=== PATIENT | female | born 1975 | race Caucasian/White ===

== ENCOUNTER → 2016-11-03 | Outpatient (CLI) | payer BC ==
[~2016-11-03] MED LIST: IBUP600T OR; METHYLERGONOVINE PO
--- NOTE | 2016-11-08 21:16 | HOLTMON ---
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 Sinus rhythm with normal AV conduction and normal intraventricular conduction was the baseline mechanism. Minimum HR was 55 bpm, average HR 85 bpm and maximum HR 135 bpm. There were 2 PVC's and 4 PAC's. No pauses. No reported symptoms. Normal Holter monitor. Electronically Signed On 11-08-2016 21:16:38 EST by Reuben Josue
== END ==
LOC: M EKG 15:05
PROVIDERS: ATTEND Family Medicine
DX: R00.2 Palpitations (principal)

== ENCOUNTER → 2016-11-17 | Outpatient (REF) | payer BC ==
[2016-11-17 13:00] LABS: FREE T4 1.01 NG/DL (0.76-1.46)
== END ==
LOC: M LABNEURO 12:17
PROVIDERS: ATTEND Family Medicine
DX: R73.01 Impaired fasting glucose (principal); L65.8 Other specified nonscarring hair loss

== ENCOUNTER 2016-12-11 13:20 | Emergency (ER) | payer OTHER, BC ==
--- NOTE | 2016-12-11 14:17 | EDDOCDS ---
Nurse's Notes [facility] Name: Shakira Tay Age: 41 yrs Sex: Female : 1975 Arrival Date: 12/11/2016 Time: 13:20 Bed I10 / 23 Private MD: Franny Sepulveda Diagnosis: Contact with and (suspected) exposure to other hazardous, chiefly nonmedicinal, chemicals-IN RIGHT EYE, NO SYMPTOMS Presentation: 12/11 13:35 Presenting complaint: Patient states: cavicide cleaners in right eye. pt reports she dsf flushed her eye out. Letty wanted pt to be seen here. Adult Sepsis Screening: The patient does not have new or worsening altered mentation. Patient's respiratory rate is less than 22. Systolic blood pressure is greater than 100. Patient has a qSOFA score of 0- Negative Sepsis Screen. Suicide/Homicide risk assessment- the patient denies having any suicidal and/or homicidal ideations and does not present with any other emotional, behavioral or mental health complaints. Status: Patient is not a social human services assistants or dependent. Transition of care: patient was not received from another setting of care. 13:35 Acuity: GIANNI Level 4 dsf 13:35 Method Of Arrival: Walkin/Carried/Asstd dsf Triage Assessment: 13:37 General: Appears in no apparent distress, Behavior is appropriate for age, cooperative. dsf Pain: Denies pain. HIV screening NA for this visit Offered previously. EENT: Eyes redness noted around eye. pt denies pain or burning or blurry vision . 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 Claritin 10 mg Oral tab 1 tab once daily 2. gabapentin 300 mg Oral cap 1 cap 3 times per day 3. omeprazole 40 mg Oral cpDR once daily - PMHx: GERD; Migraine Headaches; Trigeminal Neuralgia; - PSHx: D & C; gastric sleeve; - Social history: Smoking status: Patient states was never smoker of tobacco. No barriers to communication noted, The patient speaks fluent Frisian, Speaks appropriately for age. - Family history: Not pertinent. - : The pt / caregiver states he / she is not on anticoagulants. Home medication list is obtained from the patient. - Exposure Risk Screening:: None identified. Screenin:01 Screening information is obtained from the patient. Fall risk: No risks identified. kr3 Assistance ADL's: requires no assistance with activities of daily living. Abuse/DV Screen: The patient / caregiver reports he/she is: not in a situation that causes fear, pain or injury. Nutritional screening: No deficits noted. Advance Directives: Currently, there is no health care proxy. home support is adequate. Assessment: 14:01 Reassessment: Patient appears in no apparent distress at this time. Patient denies pain kr3 at this time. EENT: Denies blurred vision. Vital Signs: 13:22 BP 135 / 85; Pulse 88; Resp 18; Temp 97.7(O); Pulse Ox 99% on R/A; Weight 88 kg (R); elp Height 5 ft. 1 in. (154.94 cm) (R); 13:22 Body Mass Index 36.66 (88.00 kg, 154.94 cm) elp Vitals: 13:22 Log In Time: December 11, 2016 at 13:22. elp Visual Acuity: 14:01 Left Eye Visual acuity 20/25, ; Right Eye Visual acuity 20/50, ; With Lenses; kr3 ED Course: 13:21 Patient visited by Merlyn Page PCA. elp 13:21 Patient moved to Waiting elp 13:22 Franny Sepulveda MD is Private Physician. elp 13:23 Patient visited by Merlyn Page PCA. elp 13:23 Patient moved to Pre RCE elp 13:36 Triage Initiated dsf 13:38 Patient moved to I10 / 23 dsf 13:42 Poison Control notified at 13:42 recommendations reviewed with Debbie ALEJO . dsf 13:48 [facility] dt4 13:48 Malini Clifton MD is Attending Physician. dt4 13:49 Patient visited by Debbie Allen PA-C. dt4 14:02 The patient / caregiver is instructed regarding the plan of care and ED course. kr3 Accompanied by Friend, Patient has correct armband on for positive identification. Call light in reach. 14:02 No IV's were initiated during this patient's visit. No procedures done that require kr3 assistance. Order Results: There are currently no results for this order. Outcome: 14:02 No special radiology studies were completed. kr3 14:08 Discharge ordered by Provider. dt4 14:16 Discharge Assessment: patient administered narcotics - no. The following High Risk rs3 Discharge criteria are identified: None. Discharged to home with friend. Condition: stable. Discharge instructions given to friend. Property :Personal belongings accompany Pt. 14:17 Patient left the ED. rs3 Signatures: Kandis JjRN RN kr3 Floridalma SmartRN RN rs3 Samira CrossRN RN dsf Merlyn Page, JOSH GRAB SETTER elp Debbie Allen, KERLINE CHURCHILL dt4 MTDD
--- NOTE | 2016-12-11 14:17 | EDDOCDS ---
Physician Documentation [facility] Name: Shakira Tay Age: 41 yrs Sex: Female : 1975 Arrival Date: 12/11/2016 Time: 13:20 Bed I10 / 23 Private MD: Franny Sepulveda Disposition: 12/11/16 14:08 Discharged to Home/Self Care. Impression: Contact with and (suspected) exposure to other hazardous, chiefly nonmedicinal, chemicals - IN RIGHT EYE, NO SYMPTOMS. - Condition is Stable. - Discharge Instructions: Conjunctivitis, Chemical. - Medication Reconciliation, Local Pharmacy Hours form. - Follow up: Emergency Department; When: As needed; Reason: Worsening of conditions. Follow up: Private Physician; When: 4 - 5 days; Reason: Wound/Symptom Recheck, Recheck today's complaints, Continuance of care. - Problem is new. - Symptoms are unchanged. - Notes: PLEASE CALL YOUR EYE DOCTOR TODAY OR TOMORROW TO FOLLOW UP NEXT WEEK. ANY WORSENING SYMPTOMS, PLEASE RETURN TO THE ER. Historical: - Allergies: Imitrex (heavy arms and chest, pressure in the eyes); Topamax (cant think straight); - Home Meds: 1. Claritin 10 mg Oral tab 1 tab once daily 2. gabapentin 300 mg Oral cap 1 cap 3 times per day 3. omeprazole 40 mg Oral cpDR once daily - PMHx: GERD; Migraine Headaches; Trigeminal Neuralgia; - PSHx: D & C; gastric sleeve; - Social history: Smoking status: Patient states was never smoker of tobacco. No barriers to communication noted, The patient speaks fluent Swedish, Speaks appropriately for age. - Family history: Not pertinent. - : The pt / caregiver states he / she is not on anticoagulants. Home medication list is obtained from the patient. - Exposure Risk Screening:: None identified. 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 1 in. (154.94 cm) (R); 13:22 Body Mass Index 36.66 (88.00 kg, 154.94 cm) elp Visual Acuity: 14:01 Left Eye Visual acuity 20/25, ; Right Eye Visual acuity 20/50, ; With Lenses; kr3 Signatures: Kandis Jj,RN RN kr3 Floridalma Smart,RN RN rs3 Samira Cross,JOYCELYN RN lisaf Debbie Allen, KRYSTLEC PAYokastaC dt4 MTDD
--- NOTE | 2016-12-13 15:18 | EDDOCDS ---
Nurse's Notes [facility] Name: Shakira Tay Age: 41 yrs Sex: Female : 1975 Arrival Date: 12/11/2016 Time: 13:20 Bed I10 / 23 Private MD: Franny Sepulveda Diagnosis: Contact with and (suspected) exposure to other hazardous, chiefly nonmedicinal, chemicals-IN RIGHT EYE, NO SYMPTOMS Presentation: 12/11 13:35 Presenting complaint: Patient states: cavicide rack cleaner in right eye. pt reports she dsf flushed her eye out. Letty wanted pt to be seen here. Adult Sepsis Screening: The patient does not have new or worsening altered mentation. Patient's respiratory rate is less than 22. Systolic blood pressure is greater than 100. Patient has a qSOFA score of 0- Negative Sepsis Screen. Suicide/Homicide risk assessment- the patient denies having any suicidal and/or homicidal ideations and does not present with any other emotional, behavioral or mental health complaints. Status: Patient is not a business services manager or dependent. Transition of care: patient was not received from another setting of care. 13:35 Acuity: GIANNI Level 4 dsf 13:35 Method Of Arrival: Walkin/Carried/Asstd dsf Triage Assessment: 13:37 General: Appears in no apparent distress, Behavior is appropriate for age, cooperative. dsf Pain: Denies pain. HIV screening NA for this visit Offered previously. EENT: Eyes redness noted around eye. pt denies pain or burning or blurry vision . 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 Claritin 10 mg Oral tab 1 tab once daily 2. gabapentin 300 mg Oral cap 1 cap 3 times per day 3. omeprazole 40 mg Oral cpDR once daily - PMHx: GERD; Migraine Headaches; Trigeminal Neuralgia; - PSHx: D & C; gastric sleeve; - Social history: Smoking status: Patient states was never smoker of tobacco. No barriers to communication noted, The patient speaks fluent Persian, Speaks appropriately for age. - Family history: Not pertinent. - : The pt / caregiver states he / she is not on anticoagulants. Home medication list is obtained from the patient. - Exposure Risk Screening:: None identified. Screenin:01 Screening information is obtained from the patient. Fall risk: No risks identified. kr3 Assistance ADL's: requires no assistance with activities of daily living. Abuse/DV Screen: The patient / caregiver reports he/she is: not in a situation that causes fear, pain or injury. Nutritional screening: No deficits noted. Advance Directives: Currently, there is no health care proxy. home support is adequate. Assessment: 14:01 Reassessment: Patient appears in no apparent distress at this time. Patient denies pain kr3 at this time. EENT: Denies blurred vision. Vital Signs: 13:22 BP 135 / 85; Pulse 88; Resp 18; Temp 97.7(O); Pulse Ox 99% on R/A; Weight 88 kg (R); elp Height 5 ft. 1 in. (154.94 cm) (R); 13:22 Body Mass Index 36.66 (88.00 kg, 154.94 cm) elp Vitals: 13:22 Log In Time: December 11, 2016 at 13:22. elp Visual Acuity: 14:01 Left Eye Visual acuity 20/25, ; Right Eye Visual acuity 20/50, ; With Lenses; kr3 ED Course: 13:21 Patient visited by Merlyn Page PCA. elp 13:21 Patient moved to Waiting elp 13:22 Franny Sepulveda MD is Private Physician. elp 13:23 Patient visited by Merlyn Page PCA. elp 13:23 Patient moved to Pre RCE elp 13:36 Triage Initiated dsf 13:38 Patient moved to I10 / 23 dsf 13:42 Poison Control notified at 13:42 recommendations reviewed with Debbie ALEJO . dsf 13:48 [facility] dt4 13:48 Malini Clifton MD is Attending Physician. dt4 13:49 Patient visited by Debbie Allen PA-C. dt4 14:02 The patient / caregiver is instructed regarding the plan of care and ED course. kr3 Accompanied by Friend, Patient has correct armband on for positive identification. Call light in reach. 14:02 No IV's were initiated during this patient's visit. No procedures done that require kr3 assistance. 14:35 [facility] Payment Agreement was scanned into [employer] and attached to record. lg 12/12 10:48 T-Sheet-- Draft Copy was scanned into [employer] and attached to record. gb Order Results: There are currently no results for this order. Outcome: 12/11 14:02 No special radiology studies were completed. kr3 14:08 Discharge ordered by Provider. dt4 14:16 Discharge Assessment: patient administered narcotics - no. The following High Risk rs3 Discharge criteria are identified: None. Discharged to home with friend. Condition: stable. Discharge instructions given to friend. Property :Personal belongings accompany Pt. 14:17 Patient left the ED. rs3 Signatures: Bonita Shah, Reg Reg gb Kulwant Johnson, Reg Reg lg Kandis Jj,RN RN kr3 Floridalma Smart RN RN rs3 Samira Cross RN RN Merlyn Smith, Debbie Bartlett, SAPNA-Ludmila PA-Ludmila dt4 Chart Complete MTDD
--- NOTE | 2016-12-13 15:18 | EDDOCDS ---
Physician Documentation [facility] Name: Shakira Tay Age: 41 yrs Sex: Female : 1975 Arrival Date: 12/11/2016 Time: 13:20 Bed I10 / 23 Private MD: Franny Sepulveda Disposition: 12/11/16 14:08 Discharged to Home/Self Care. Impression: Contact with and (suspected) exposure to other hazardous, chiefly nonmedicinal, chemicals - IN RIGHT EYE, NO SYMPTOMS. - Condition is Stable. - Discharge Instructions: Conjunctivitis, Chemical. - Medication Reconciliation, Local Pharmacy Hours form. - Follow up: Emergency Department; When: As needed; Reason: Worsening of conditions. Follow up: Private Physician; When: 4 - 5 days; Reason: Wound/Symptom Recheck, Recheck today's complaints, Continuance of care. - Problem is new. - Symptoms are unchanged. - Notes: PLEASE CALL YOUR EYE DOCTOR TODAY OR TOMORROW TO FOLLOW UP NEXT WEEK. ANY WORSENING SYMPTOMS, PLEASE RETURN TO THE ER. Historical: - Allergies: Imitrex (heavy arms and chest, pressure in the eyes); Topamax (cant think straight); - Home Meds: 1. Claritin 10 mg Oral tab 1 tab once daily 2. gabapentin 300 mg Oral cap 1 cap 3 times per day 3. omeprazole 40 mg Oral cpDR once daily - PMHx: GERD; Migraine Headaches; Trigeminal Neuralgia; - PSHx: D & C; gastric sleeve; - Social history: Smoking status: Patient states was never smoker of tobacco. No barriers to communication noted, The patient speaks fluent Cymraes, Speaks appropriately for age. - Family history: Not pertinent. - : The pt / caregiver states he / she is not on anticoagulants. Home medication list is obtained from the patient. - Exposure Risk Screening:: None identified. 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 1 in. (154.94 cm) (R); 13:22 Body Mass Index 36.66 (88.00 kg, 154.94 cm) elp Visual Acuity: 14:01 Left Eye Visual acuity 20/25, ; Right Eye Visual acuity 20/50, ; With Lenses; kr3 MDM: 14:35 [facility] Payment Agreement was scanned into [employer] and attached to record. lg 12/12 10:48 T-Sheet-- Draft Copy was scanned into [employer] and attached to record. gb Signatures: Bonita Shah, Reg Reg gb Kulwant Johnson, Reg Reg lg Kandis Jj RN RN kr3 Floridalma Smart RN RN rs3 Samira CrossRN RN lisaf Debbie Allen, KERLINE PAOliver dt4 The chart was reviewed and I authenticate all verbal orders and agree with the evaluation and treatment provided.Attachments: 12/11 14:35 [facility] Payment Agreement 12/12 10:48 T-Sheet-- Draft Copy gb Chart Complete MTDD
--- NOTE | 2016-12-13 15:18 | EDDOCDS ---
Physician Documentation [facility] Name: Shakira Tay Age: 41 yrs Sex: Female : 1975 Arrival Date: 12/11/2016 Time: 13:20 Bed I10 / 23 Private MD: Franny Sepulveda Disposition: 12/11/16 14:08 Discharged to Home/Self Care. Impression: Contact with and (suspected) exposure to other hazardous, chiefly nonmedicinal, chemicals - IN RIGHT EYE, NO SYMPTOMS. - Condition is Stable. - Discharge Instructions: Conjunctivitis, Chemical. - Medication Reconciliation, Local Pharmacy Hours form. - Follow up: Emergency Department; When: As needed; Reason: Worsening of conditions. Follow up: Private Physician; When: 4 - 5 days; Reason: Wound/Symptom Recheck, Recheck today's complaints, Continuance of care. - Problem is new. - Symptoms are unchanged. - Notes: PLEASE CALL YOUR EYE DOCTOR TODAY OR TOMORROW TO FOLLOW UP NEXT WEEK. ANY WORSENING SYMPTOMS, PLEASE RETURN TO THE ER. Historical: - Allergies: Imitrex (heavy arms and chest, pressure in the eyes); Topamax (cant think straight); - Home Meds: 1. Claritin 10 mg Oral tab 1 tab once daily 2. gabapentin 300 mg Oral cap 1 cap 3 times per day 3. omeprazole 40 mg Oral cpDR once daily - PMHx: GERD; Migraine Headaches; Trigeminal Neuralgia; - PSHx: D & C; gastric sleeve; - Social history: Smoking status: Patient states was never smoker of tobacco. No barriers to communication noted, The patient speaks fluent St Helenian, Speaks appropriately for age. - Family history: Not pertinent. - : The pt / caregiver states he / she is not on anticoagulants. Home medication list is obtained from the patient. - Exposure Risk Screening:: None identified. 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 1 in. (154.94 cm) (R); 13:22 Body Mass Index 36.66 (88.00 kg, 154.94 cm) elp Visual Acuity: 14:01 Left Eye Visual acuity 20/25, ; Right Eye Visual acuity 20/50, ; With Lenses; kr3 MDM: 14:35 [facility] Payment Agreement was scanned into [employer] and attached to record. lg 12/12 10:48 T-Sheet-- Draft Copy was scanned into [employer] and attached to record. gb Signatures: Bonita Shah, Reg Reg gb Kulwant Johnson, Reg Reg lg Kandis Jj RN RN kr3 Floridalma Smart RN RN rs3 Samira CrossRN RN lisaf Debbie Allen, KERLINE PAOliver dt4 The chart was reviewed and I authenticate all verbal orders and agree with the evaluation and treatment provided.Attachments: 12/11 14:35 [facility] Payment Agreement 12/12 10:48 T-Sheet-- Draft Copy gb Chart Complete MTDD
== END 2016-12-11 14:17 | disposition home or self-care (01) ==
LOC: M ED 13:20
DX: Z77.098 Contact with and (suspected) exposure to other hazardous, chiefly nonmedicinal, chemicals (principal); K21.9 Gastro-esophageal reflux disease without esophagitis; G43.909 Migraine, unspecified, not intractable, without status migrainosus; G50.0 Trigeminal neuralgia; Z79.899 Other long term (current) drug therapy; Z88.8 Allergy status to other drugs, medicaments and biological substances

== ENCOUNTER → 2017-09-18 | Outpatient (CLI) | payer BC ==
[2017-09-18 18:04] LABS: BASO % 0.8 % (0.0-1.0); EOS # 0.1 10^3/uL (0.0-0.50); EOS % 2.6 % (0.0-3.0); LYMPH # 1.6 10^3/uL (1.5-4.5); MEAN CORPUSCULAR HEMOGLOBIN 28.7 pg (27.0-33.0); MEAN CORPUSCULAR HGB CONC 33.5 g/dl (32.0-36.5); MEAN CORPUSCULAR VOLUME 85.8 fl (80.0-96.0); MONO # 0.3 10^3/uL (0.0-0.8); MONO % 7.5 % (0.0-5.0); NEUTROPHILS # 1.9 10^3/uL (1.8-7.7); NEUTROPHILS % 48.1 % (36.0-66.0); PLATELET COUNT, AUTOMATED 234 10^3/uL (150-450); WHITE BLOOD COUNT 3.9 10^3/uL (4.0-10.0)
[2017-09-18 18:38] LABS: ALBUMIN 3.5 GM/DL (3.2-5.2); ALBUMIN/GLOBULIN RATIO 1.13 (1.00-1.93); ALKALINE PHOSPHATASE 102 U/L (45-117); ALT/SGPT 21 U/L (12-78); ANION GAP 8 MEQ/L (8-16); AST/SGOT 16 U/L (7-37); BILIRUBIN,TOTAL 0.4 MG/DL (0.2-1.0); BLOOD UREA NITROGEN 8 MG/DL (7-18); CALCIUM LEVEL 8.7 MG/DL (8.5-10.1); CARBON DIOXIDE LEVEL 28 MEQ/L (21-32); CHLORIDE LEVEL 103 MEQ/L (98-107); CREATININE FOR GFR 0.64 MG/DL (0.55-1.02); GLOMERULAR FILTRATION RATE > 60.0 (>58); GLUCOSE, FASTING 71 MG/DL (70-105); POTASSIUM SERUM 4.5 MEQ/L (3.5-5.1); SODIUM LEVEL 139 MEQ/L (136-145); TOTAL PROTEIN 6.6 GM/DL (6.4-8.2)
== END ==
LOC: M LABNEURO 08:34
PROVIDERS: ATTEND Family Medicine
DX: R73.01 Impaired fasting glucose (principal); K21.9 Gastro-esophageal reflux disease without esophagitis; L65.9 Nonscarring hair loss, unspecified

== ENCOUNTER → 2017-10-27 | Outpatient (REF) | payer BC ==
[2017-10-27 18:37] LABS: PROGESTERONE 0.2 NG/ML
[2017-10-27 18:38] LABS: ESTRADIOL 149.2 PG/ML; FOLLICLE STIMULATING HORMONE 7.3 mIU/mL; LUTEINIZING HORMONE 4.4 mIU/mL
== END ==
LOC: M LAB REF 16:58
PROVIDERS: ATTEND Obstetrics & Gynecology
DX: R68.82 Decreased libido (principal)

== ENCOUNTER → 2018-08-20 | Outpatient (CLI) | payer BC | LOC: M PAIN 09:30 | DX: M79.18 Myalgia, other site (principal); M43.02 Spondylolysis, cervical region; M50.10 Cervical disc disorder with radiculopathy, unspecified cervical region; G43.909 Migraine, unspecified, not intractable, without status migrainosus; Z79.899 Other long term (current) drug therapy; Z88.8 Allergy status to other drugs, medicaments and biological substances | CPT/HCPCS: G0463 ==

== ENCOUNTER → 2018-09-14 | Outpatient (CLI) | payer BC | LOC: M PAIN 15:45 | DX: M54.2 Cervicalgia (principal); M79.18 Myalgia, other site; G43.709 Chronic migraine without aura, not intractable, without status migrainosus; G50.0 Trigeminal neuralgia; M54.81 Occipital neuralgia; Z79.899 Other long term (current) drug therapy; Z88.8 Allergy status to other drugs, medicaments and biological substances; Z98.84 Bariatric surgery status | CPT/HCPCS: G0463 ==

== ENCOUNTER → 2018-11-19 | Outpatient (CLI) | payer BC ==
[~2018-11-19] MED LIST changes: +BUPIVACAINE HCL 0.25% 10 ML VIAL As Ordered ONE; +BUPIVACAINE HCL 0.25% 30 ML VIAL As Ordered ONE; +TRIAMCINOLONE ACETONIDE SUSP 40 MG/ML VIAL (J3301) As Ordered ONE; +diazePAM 5 MG TAB As Ordered ONE; +oxyCODONE 5MG TAB As Ordered ONE
--- NOTE | 2018-12-06 00:51 | ECWPNPC ---
PATIENT NAME: JOSE F MENDEZ : 1975 GENDER: FEMALE VISIT DATE: 11/19/2018 DISCHARGE DATE: 11/19/18 1036 VISIT LOCKED DATE TIME: PHYSICIAN: GALILEO TEMPLETON MD RESOURCE: GALILEO TEMPLETON MD REASON FOR APPOINTMENT 1. TPI HISTORY OF PRESENT ILLNESS HISTORY OF PRESENT ILLNESS: PAIN THE PATIENT DESCRIBES THE PAIN... FALL RISK SCREENING: SCREENING :NO FALLS IN THE PAST YEAR CURRENT MEDICATIONS TAKING GABAPENTIN 400 MG CAPSULE 1 CAPSULE ORALLY TWICE A DAY, NOTES: 11-19-18699 TAKING SPIRONOLACTONE 25 MG TABLET 1 TABLET ORALLY , NOTES: 11-19-18699 TAKING TIZANIDINE HCL 4 MG TABLET 1 TABLET NEEDED ORALLY THREE TIMES A DAY, NOTES: [id number] TAKING LORAZEPAM 0.5 MG TABLET 1 TABLET NEEDED ORALLY ONCE A DAY, NOTES: NONE RECENT TAKING LORATADINE 10 MG TABLET 1 TABLET ORALLY ONCE A DAY, NOTES: 11-19-18699 TAKING TRETINOIN 0.025 % CREAM 1 APPLICATION TO AFFECTED AREA IN THE EVENING TO FACE EXTERNALLY ONCE A DAY, NOTES: [id number] TAKING RIZATRIPTAN BENZOATE 5 MG TABLET 1 TABLET NEEDED ONE TIME ORALLY ONCE A DAY, NOTES: NOT LATELY TAKING BIOTIN MAXIMUM STRENGTH 5000 MCG CAPSULE 1 CAPSULE ORALLY ONCE A DAY, NOTES: 11-18-18699 UNKNOWN CYMBALTA 30 MG CAPSULE DELAYED RELEASE PARTICLES 1 CAPSULE ORALLY BID MEDICATION LIST REVIEWED AND RECONCILED WITH THE PATIENT PAST MEDICAL HISTORY CHRONIC MIGRANES CHRONIC NECK PAIN TRIGEMINAL NEURALGIA OCCIPITAL NEURALGIA ALLERGIES TOPAMAX: NAUSEA: SIDE EFFECTS IMITREX: NAUSEA: SIDE EFFECTS SURGICAL HISTORY D&C 2005 D&C 2010 D&C 2012 D&C 2013 GASTRIC SLEEVE 2014 FAMILY HISTORY FATHER: , DIAGNOSED WITH HYPERTENSION MOTHER: 74 YRS, DIAGNOSED WITH HYPERTENSION SOCIAL HISTORY GENERAL: TOBACCO USE ARE YOU A:NONSMOKER ALCOHOL SCREENING DID YOU HAVE A DRINK CONTAINING ALCOHOL IN THE PAST YEAR?YES HOW OFTEN DID YOU HAVE A DRINK CONTAINING ALCOHOL IN THE PAST YEAR?MONTHLY OR LESS (1 POINT) HOW MANY DRINKS DID YOU HAVE ON A TYPICAL DAY WHEN YOU WERE DRINKING IN THE PAST YEAR?1 OR 2 (0 POINTS) HOW OFTEN DID YOU HAVE SIX OR MORE DRINKS ON ONE OCCASION IN THE PAST YEAR?NEVER (0 POINTS) POINTS1 INTERPRETATIONNEGATIVE RECREATIONAL DRUG USE DRUG USE?NO LANGUAGE LANGUAGES SPOKEN:[place] LEARNING BARRIERS / SPECIAL NEEDS BARRIERS TO LEARNING?NO HEARING IMPAIRED?NO VISION IMPAIRED?YES :CORRECTIVE LENSES COGNITIVELY IMPAIRED?NO READINESS TO LEARN?YES DOMESTIC VIOLENCE DO YOU FEEL SAFE IN YOUR ENVIRONMENT?YES PAIN CLINIC PFS, CLERGY, PUBLIC HEALTH REFERRALS HAS THE PATIENT BEEN EDUCATED REGARDING HIS/HER PLAN OF CARE?YES HAS THE PATIENT BEEN EDUCATED REGARDING PAIN, THE RISK FOR PAIN, THE IMPORTANCE OF EFFECTIVE PAIN MANAGEMENT, AND THE PAIN ASSESSMENT PROCESS?YES ADVANCE DIRECTIVE ADVANCE DIRECTIVE DISCUSSED WITH PATIENT:YES PT DOES NOT WANT INFO AT THIS TIME 09/14/18 REVIEWED WITH PT 08/20/18 1799 BVREVIEWED WITH PT 09/14/18 1601 BV. HOSPITALIZATION/MAJOR DIAGNOSTIC PROCEDURE NONE OTHER THAN SURGERIES REVIEW OF SYSTEMS REVIEWED BY: PROVIDER: . CONSTITUTIONAL: ANY CHANGE IN YOUR MEDICAL CONDITION? NO . CHILLS NO . FEVER NO . INFECTION: DO YOU HAVE NEW INFECTIONS? YES HAD A SORE THROAT RESOLVED SINCE 11-08-18 . DO YOU HAVE HISTORY OF MRSA? NO . MUSCULOSKELETAL: ANY NEW PATTERNS OF PAIN OR NUMBNESS? NO . GASTROENTEROLOGY: ANY NEW CHANGE IN BOWEL CONTROL? NO . GENITOURINARY: ANY NEW CHANGE IN BLADDER CONTROL? NO . IS THERE A CHANCE YOU COULD BE ? NO . HEMATOLOGY/LYMPH: DO YOU TAKE ANY BLOOD THINNERS? (FOR EXAMPLE- COUMADIN, PLAVIX, AGGRENOX, PLATEL, PRADAXA, OR XARELTO) NO . WHEN WAS YOUR LAST DOSE? DATE: TIME: . NEUROLOGY: HAVE YOU FALLEN IN THE PAST 12 MONTHS? NO . ANY NEW EXTREMITY NUMBNESS OR WEAKNESS? NO . CARDIOLOGY: DO YOU HAVE A PACEMAKER OR DEFIBRILLATOR? NO . RESPIRATORY: HAVE YOU BEEN SICK IN THE PAST WEEK? NO . FEVER NO . FLU LIKE SYMPTOMS? NO . COUGH NO . INTEGUMENTARY: DO YOU HAVE ANY RASHES OR OPEN SORES? NO . ALLERGIC/IMMUNO: ARE YOU ALLERGIC TO IV DYE? NO . ANY NEW ALLERGIES? NO . PSYCHIATRIC: DO YOU HAVE THOUGHTS OF HURTING YOURSELF OR SOMEONE ELSE? NO . ARE YOU ABUSED, NEGLECTED, OR IN AN UNSAFE ENVIRONMENT? NO . ENDOCRINOLOGY: ARE YOU DIABETIC? NO . OTHER: DO YOU NEED ANY PRESCRIPTIONS? NO . IF YES, PLEASE LIST: ____ . ANY NEW PROBLEMS WITH YOUR MEDICATIONS? NO . WHEN DID YOU LAST EAT? ____-17-19 8 PM . WHEN DID YOU LAST DRINK? ____THIS MORNING 0730 . WHAT DID YOU LAST DRINK? ____WATER . NAME OF PERSON DRIVING YOU HOME? ____JAMES . DO YOU HAVE ANY OTHER QUESTIONS OR CONCERNS NO . VITAL SIGNS WT 215.2 LBS, HT 61 IN, BMI 40.66 INDEX, BP 143/99 MM HG, HR 82 /MIN, RR 16 /MIN, TEMP 97.4 F, OXYGEN SAT % 100%, NA INITIALS SC 09:09. ASSESSMENTS MYALGIA, OTHER SITE - M79.18 (PRIMARY) PROCEDURES PN TRIGGER POINT INJECTION WITH STEROIDS PRE PROCEDURE DIAGNOSIS 1. MYALGIA 2. PAIN AT BILATERAL NECK AREA, BILATERAL SHOULDER AREA, AND BILATERAL THORACIC AREA POST PROCEDURE DIAGNOSIS 1. MYALGIA 2. PAIN AT BILATERAL NECK AREA, BILATERAL SHOULDER AREA, AND BILATERAL THORACIC AREA PROCEDURE TRIGGER POINT INJECTION AT BILATERAL NECK AREA, BILATERAL SHOULDER AREA, AND BILATERAL THORACIC AREA SURGEON DR. GALILEO TEMPLETON RADAR TESTER NONE ANESTHESIA LOCAL PRE PROCEDURE NOTE THE PATIENT HAS A HISTORY OF CHRONIC PAIN AT THE RIGHT AND LEFT NECK AREA, RIGHT AND LEFT SHOULDER AREA, AND RIGHT AND LEFT THORACIC AREA. I EVALUATE THE PATIENT AND REVIEWED THE CHART. THERE IS EVIDENCE OF BANDS OF TISSUE WITH RESTRICTION OF MOVEMENT AND PRESENCE OF TRIGGER POINT AT THE AFFECTED AREA. I WENT OVER THE RISKS, ALTERNATIVES, AND BENEFITS ASSOCIATED WITH THIS PROCEDURE. THE PATIENT WOULD LIKE TO PROCEED AND GIVE CONSENT TO PERFORMED THE PROCEDURE. THE PATIENT DENIES UNEXPLAINABLE WEIGHT LOSS, FEVER, CHILLS, OR NEW CHANGES IN URINARY OR BOWEL CONTROL DESCRIPTION OF PROCEDURE THE PATIENT WAS BROUGHT TO THE PROCEDURE ROOM AND PLACED IN THE SITTING POSITION. THE AREA WAS CLEANED WITH ALCOHOL. THE PROCEDURE WAS DONE USING ASEPTIC STERILE TECHNIQUE. I CHECKED LATERALITY AND THE LEVEL WHERE THE PROCEDURE WAS GOING TO BE PERFORMED WITH THE PATIENT AND THE SUPPORTING STAFF AT THE MOMENT OF THE TIME OUT IN THE PROCEDURE ROOM. USING A 25-GAUGE NEEDLE, TRIGGER POINTS WERE INJECTED AT THE RIGHT AND LEFT NECK AREA, RIGHT AND LEFT SHOULDER AREA, AND RIGHT AND LEFT THORACIC AREA WITH A TOTAL OF 40 ML OF BUPIVACAINE 0.25% AND KENALOG 40 MG. THERE WAS NO EVIDENCE OF BLOOD, PARESTHESIA OR CEREBROSPINAL FLUID DURING THE PROCEDURE. THE PATIENT WAS SENT TO THE RECOVERY ROOM. THE PATIENT WAS MOVING THE EXTREMITIES AND DOING WELL. THERE WAS NO COMPLICATION DURING THE PROCEDURE POST PROCEDURE NOTE THE PATIENT WILL BE SEEN IN A FOLLOW UP IN THE NEXT FEW WEEKS. INSTRUCTIONS WERE GIVEN, QUESTIONS WERE ANSWERED, AND THE PATIENT EXPRESSED UNDERSTANDING AND AGREES WITH THE PLAN. I, GERMAN KEBEDE, DOCUMENTED THE ABOVE INFORMATION ACTING A SCRIBE FOR DR. TEMPLETON. I HAVE REVIEWED THE ABOVE DOCUMENT, WRITTEN BY GERMAN EARL AND I VERIFY THAT IT IS ACCURATE. PROCEDURE CODES 92808 INJECT TRIGGER POINTS 3/> DISPOSITION & COMMUNICATION FOLLOW UP 3 WEEKS ELECTRONICALLY SIGNED BY GALILEO TEMPLETON MD, MD ON 12/05/2018 AT 05:52 PM EST DISCLAIMER : THIS IS A VISIT SUMMARY EXTRACTED FROM THE [employer] CHART. IT IS NOT A COPY OF THE [employer] PROGRESS NOTE. KASSI
== END ==
LOC: M PAIN 08:30
PROVIDERS: ATTEND Anesthesiology
DX: M79.18 Myalgia, other site (principal); M54.2 Cervicalgia; M25.511 Pain in right shoulder; M25.512 Pain in left shoulder; M54.6 Pain in thoracic spine; G43.909 Migraine, unspecified, not intractable, without status migrainosus; E66.01 Morbid (severe) obesity due to excess calories; Z68.41 Body mass index [BMI] 40.0-44.9, adult; Z79.899 Other long term (current) drug therapy; Z88.8 Allergy status to other drugs, medicaments and biological substances; Z98.84 Bariatric surgery status
CPT/HCPCS: 20553; J3301

== ENCOUNTER → 2018-12-02 | Outpatient (CLI) | payer BC ==
[~2018-12-02] MED LIST changes: -BUPIVACAINE HCL 0.25% 10 ML VIAL As Ordered ONE; -BUPIVACAINE HCL 0.25% 30 ML VIAL As Ordered ONE; -TRIAMCINOLONE ACETONIDE SUSP 40 MG/ML VIAL (J3301) As Ordered ONE; -diazePAM 5 MG TAB As Ordered ONE; -oxyCODONE 5MG TAB As Ordered ONE
[2018-12-02 11:28] LABS: BASO % 0.7 % (0.0-1.0); EOS # 0.1 10^3/uL (0.0-0.50); EOS % 1.3 % (0.0-3.0); HEMATOCRIT 46.8 % (36.0-47.0); HEMOGLOBIN 15.8 g/dl (12.0-15.5); LYMPH # 1.9 10^3/uL (1.5-4.5); LYMPH % 31.6 % (24.0-44.0); MEAN CORPUSCULAR HEMOGLOBIN 29.3 pg (27.0-33.0); MEAN CORPUSCULAR HGB CONC 33.8 g/dl (32.0-36.5); MEAN CORPUSCULAR VOLUME 86.8 fl (80.0-96.0); MONO # 0.4 10^3/uL (0.0-0.8); MONO % 5.8 % (0.0-5.0); NEUTROPHILS # 3.6 10^3/uL (1.8-7.7); NEUTROPHILS % 60.4 % (36.0-66.0); PLATELET COUNT, AUTOMATED 253 10^3/uL (150-450); RED BLOOD COUNT 5.39 10^6/uL (4.00-5.40)
[2018-12-02 11:42] LABS: ALBUMIN 3.5 GM/DL (3.2-5.2); ALT/SGPT 17 U/L (12-78); BILIRUBIN,TOTAL 0.6 MG/DL (0.2-1.0); BLOOD UREA NITROGEN 10 MG/DL (7-18); CALCIUM LEVEL 8.7 MG/DL (8.5-10.1); CARBON DIOXIDE LEVEL 29 MEQ/L (21-32); CHLORIDE LEVEL 101 MEQ/L (98-107); CHOLESTEROL LEVEL 279 MG/DL (<200); CHOLESTEROL RISK RATIO 5.365 (<5); CREATININE FOR GFR 0.72 MG/DL (0.55-1.30); FREE T4 1.06 NG/DL (0.76-1.46); GLOMERULAR FILTRATION RATE > 60.0 (>58); GLUCOSE, FASTING 92 MG/DL (70-100); HDL CHOLESTEROL 52 MG/DL (>40); LDL CHOLESTEROL 200 MG/DL (<100); NON-HDL-C 227 MG/DL; POTASSIUM SERUM 4.4 MEQ/L (3.5-5.1); SODIUM LEVEL 136 MEQ/L (136-145); THYROID STIMULATING HORMONE 0.843 uIU/ML (0.358-3.740); TOTAL PROTEIN 6.8 GM/DL (6.4-8.2); TRIGLYCERIDES LEVEL 134 MG/DL (<150)
[2018-12-02 11:44] LABS: TOTAL 25(OH) VITAMIN D 19.7 NG/ML (30.0-100.0)
== END ==
LOC: M WUC 08:49
PROVIDERS: ATTEND Family Medicine
DX: Z13.29 Encounter for screening for other suspected endocrine disorder (principal); F32.1 Major depressive disorder, single episode, moderate; Z13.0 Encounter for screening for diseases of the blood and blood-forming organs and certain disorders involving the immune mechanism

== ENCOUNTER → 2018-12-10 | Outpatient (CLI) | payer BC ==
--- NOTE | 2018-12-18 23:57 | ECWPNPC ---
PATIENT NAME: JOSE F MENDEZ : 1975 GENDER: FEMALE VISIT DATE: 12/10/2018 DISCHARGE DATE: 12/10/18 1555 VISIT LOCKED DATE TIME: PHYSICIAN: GALILEO TEMPLETON MD RESOURCE: GALILEO TEMPLETON MD REASON FOR APPOINTMENT 1. POST TPI HISTORY OF PRESENT ILLNESS HISTORY OF PRESENT ILLNESS: PAIN THE PATIENT DESCRIBES THE PAIN... 43 YEAR OLD FEMALE PATIENT WITH A HISTORY OF CHRONIC NECK PAIN. THE PATIENT DESCRIBES THE PAIN ACHING, TENDER, AND CONTINUOUS WITH A PAIN SCORE OF 5-7/10 DEPENDING ON PHYSICAL ACTIVITY. THE PATIENT SAYS THAT THE PAIN STARTS IN HER NECK AREA AND RADIATES UP CAUSING HEADACHES WELL DOWN INTO HER SHOULDERS. THE PATIENT WAS HERE FOR A TRIGGER POINT INJECTION ON 11/19/2018 AND REPORTS NOT HAVING VERY MUCH RELIEF AFTER THE INJECTION. THE PATIENT IS CURRENTLY USING GABAPENTIN AND TIZANIDINE TO AID IN PAIN RELIEF. PATIENT DENIES UNEXPLAINABLE WEIGHT LOSS, FEVER, CHILLS, NEW CHANGES ON HER URINARY OR BOWEL CONTROL. FALL RISK SCREENING: SCREENING :NO FALLS IN THE PAST YEAR CURRENT MEDICATIONS TAKING GABAPENTIN 400 MG CAPSULE 1 CAPSULE ORALLY TWICE A DAY TAKING SPIRONOLACTONE 25 MG TABLET 1 TABLET ORALLY TAKING TIZANIDINE HCL 4 MG TABLET 1 TABLET NEEDED ORALLY THREE TIMES A DAY TAKING LORAZEPAM 0.5 MG TABLET 1 TABLET NEEDED ORALLY ONCE A DAY TAKING LORATADINE 10 MG TABLET 1 TABLET ORALLY ONCE A DAY TAKING TRETINOIN 0.025 % CREAM 1 APPLICATION TO AFFECTED AREA IN THE EVENING TO FACE EXTERNALLY ONCE A DAY TAKING RIZATRIPTAN BENZOATE 5 MG TABLET 1 TABLET NEEDED ONE TIME ORALLY ONCE A DAY TAKING BIOTIN MAXIMUM STRENGTH 5000 MCG CAPSULE 1 CAPSULE ORALLY ONCE A DAY TAKING EFFEXOR 75MG ORALLY DAILY NOT-TAKING CYMBALTA 30 MG CAPSULE DELAYED RELEASE PARTICLES 1 CAPSULE ORALLY BID MEDICATION LIST REVIEWED AND RECONCILED WITH THE PATIENT PAST MEDICAL HISTORY CHRONIC MIGRANES CHRONIC NECK PAIN TRIGEMINAL NEURALGIA OCCIPITAL NEURALGIA ALLERGIES TOPAMAX: NAUSEA: SIDE EFFECTS IMITREX: NAUSEA: SIDE EFFECTS SURGICAL HISTORY D&C 2005 D&C 2010 D&C 2012 D&C 2013 GASTRIC SLEEVE 2014 FAMILY HISTORY FATHER: , DIAGNOSED WITH HYPERTENSION MOTHER: 74 YRS, DIAGNOSED WITH HYPERTENSION SOCIAL HISTORY GENERAL: TOBACCO USE ARE YOU A:NONSMOKER ALCOHOL SCREENING DID YOU HAVE A DRINK CONTAINING ALCOHOL IN THE PAST YEAR?YES HOW OFTEN DID YOU HAVE A DRINK CONTAINING ALCOHOL IN THE PAST YEAR?MONTHLY OR LESS (1 POINT) HOW MANY DRINKS DID YOU HAVE ON A TYPICAL DAY WHEN YOU WERE DRINKING IN THE PAST YEAR?1 OR 2 (0 POINTS) HOW OFTEN DID YOU HAVE SIX OR MORE DRINKS ON ONE OCCASION IN THE PAST YEAR?NEVER (0 POINTS) POINTS1 INTERPRETATIONNEGATIVE RECREATIONAL DRUG USE DRUG USE?NO LANGUAGE LANGUAGES SPOKEN:[place] LEARNING BARRIERS / SPECIAL NEEDS BARRIERS TO LEARNING?NO HEARING IMPAIRED?NO VISION IMPAIRED?YES :CORRECTIVE LENSES COGNITIVELY IMPAIRED?NO READINESS TO LEARN?YES DOMESTIC VIOLENCE DO YOU FEEL SAFE IN YOUR ENVIRONMENT?YES PAIN CLINIC PFS, CLERGY, PUBLIC HEALTH REFERRALS HAS THE PATIENT BEEN EDUCATED REGARDING HIS/HER PLAN OF CARE?YES HAS THE PATIENT BEEN EDUCATED REGARDING PAIN, THE RISK FOR PAIN, THE IMPORTANCE OF EFFECTIVE PAIN MANAGEMENT, AND THE PAIN ASSESSMENT PROCESS?YES ADVANCE DIRECTIVE ADVANCE DIRECTIVE DISCUSSED WITH PATIENT:YES PT DOES NOT WANT INFO AT THIS TIME REVIEWED WITH PT 08/20/18 1803 BVREVIEWED WITH PT 09/14/18 0741 BV. HOSPITALIZATION/MAJOR DIAGNOSTIC PROCEDURE NONE OTHER THAN SURGERIES REVIEW OF SYSTEMS REVIEWED BY: PROVIDER: GALILEO TEMPLETON MD . CONSTITUTIONAL: ANY CHANGE IN YOUR MEDICAL CONDITION? NO . CHILLS NO . FEVER NO . INFECTION: DO YOU HAVE NEW INFECTIONS? NO . DO YOU HAVE HISTORY OF MRSA? NO . MUSCULOSKELETAL: ANY NEW PATTERNS OF PAIN OR NUMBNESS? NO . GASTROENTEROLOGY: ANY NEW CHANGE IN BOWEL CONTROL? NO . GENITOURINARY: ANY NEW CHANGE IN BLADDER CONTROL? NO . IS THERE A CHANCE YOU COULD BE ? NO . HEMATOLOGY/LYMPH: DO YOU TAKE ANY BLOOD THINNERS? (FOR EXAMPLE- COUMADIN, PLAVIX, AGGRENOX, PLATEL, PRADAXA, OR XARELTO) NO . WHEN WAS YOUR LAST DOSE? DATE: TIME: . NEUROLOGY: HAVE YOU FALLEN IN THE PAST 12 MONTHS? NO . ANY NEW EXTREMITY NUMBNESS OR WEAKNESS? NO . CARDIOLOGY: DO YOU HAVE A PACEMAKER OR DEFIBRILLATOR? NO . RESPIRATORY: HAVE YOU BEEN SICK IN THE PAST WEEK? NO . FEVER NO . FLU LIKE SYMPTOMS? NO . COUGH NO . INTEGUMENTARY: DO YOU HAVE ANY RASHES OR OPEN SORES? NO . ALLERGIC/IMMUNO: ARE YOU ALLERGIC TO IV DYE? NO . ANY NEW ALLERGIES? NO . PSYCHIATRIC: DO YOU HAVE THOUGHTS OF HURTING YOURSELF OR SOMEONE ELSE? NO . ARE YOU ABUSED, NEGLECTED, OR IN AN UNSAFE ENVIRONMENT? NO . ENDOCRINOLOGY: ARE YOU DIABETIC? NO . OTHER: DO YOU NEED ANY PRESCRIPTIONS? NO . IF YES, PLEASE LIST: ____ . ANY NEW PROBLEMS WITH YOUR MEDICATIONS? NO . WHEN DID YOU LAST EAT? ____ . WHEN DID YOU LAST DRINK? ____ . WHAT DID YOU LAST DRINK? ____ . NAME OF PERSON DRIVING YOU HOME? ____ . DO YOU HAVE ANY OTHER QUESTIONS OR CONCERNS NO . VITAL SIGNS WT 215 LBS, HT 61 IN, BMI 40.62 INDEX, BP 134/88 MM HG, HR 82 /MIN, RR 16 /MIN, TEMP 97.3 F, OXYGEN SAT % 95, REVIEWED BY: EM. EXAMINATION GENERAL EXAMINATION: PATIENT IS ALERT O X 3 AND COOPERATIVE. PAIN INCREASES OVER THE CERVICAL FACET JOINTS WITH EXTENSION AND LATERAL ROTATION OF THE NECK. MRI OF THE CERVICAL SPINE DONE ON 05/30/2018 SHOWS FACET ARTHROPATHY CHANGES AT MULTIPLE LEVELS AND AN OSTEOPHYTE AT C5-C6. ASSESSMENTS SPONDYLOSIS OF CERVICAL REGION WITHOUT MYELOPATHY OR RADICULOPATHY - M47.812 (PRIMARY) TREATMENT SPONDYLOSIS OF CERVICAL REGION WITHOUT MYELOPATHY OR RADICULOPATHY CLINICAL NOTES: WE DISCUSSED SEVERAL ISSUES WITH MRS. MENDEZ'S PAIN MANAGEMENT CASE. DUE TO THE CERVICAL SPONDYLOSIS, I WOULD LIKE TO MOVE FORWARD WITH A BILATERAL C3-C4, C5-C6 THERAPEUTIC CERVICAL FACET BLOCK. WE DISCUSSED THE BENEFITS, RISKS, AND ALTERNATIVES OF THE INJECTION AND THE PATIENT WOULD LIKE TO PROCEED. THE PATIENT WOULD LIKE TO PROCEED WITH IV SEDATION DUE TO PAIN AND ANXIETY ASSOCIATED WITH THE PROCEDURE. THE PATIENT WILL COME IN FOR A PRE SEDATION FOLLOW UP. INSTRUCTIONS WERE GIVEN, QUESTIONS WERE ANSWERED, PATIENT REPORTS UNDERSTANDING AND AGREES WITH THE PLAN. I, GERMAN KEBEDE, DOCUMENTED THE ABOVE INFORMATION ACTING A SCRIBE FOR DR. TEMPLETON. I HAVE REVIEWED THE ABOVE DOCUMENT, WRITTEN BY GERMAN EARL AND I VERIFY THAT IT IS ACCURATE. OTHERS NOTES: FACET JOINT INJECTION MATERIAL WAS PRINTED, REVIEWED AND GIVEN TO PT. EM. PROCEDURE CODES FA211 ESTABILISHED PATIENT [facility] FACILITY CHARGE G8427 CURRENT MEDS W/DOSAGES DOCUMENTED G8730 PAIN ASSESS POS TOOL F/U PLAN DOC DISPOSITION & COMMUNICATION FOLLOW UP 3 WEEKS ELECTRONICALLY SIGNED BY GALILEO TEMPLETON MD, MD ON 12/18/2018 AT 08:55 PM EST DISCLAIMER : THIS IS A VISIT SUMMARY EXTRACTED FROM THE [employer] CHART. IT IS NOT A COPY OF THE [employer] PROGRESS NOTE. KASSI
== END ==
LOC: M PAIN 14:45
PROVIDERS: ATTEND Anesthesiology
DX: M47.812 Spondylosis without myelopathy or radiculopathy, cervical region (principal); G43.709 Chronic migraine without aura, not intractable, without status migrainosus; M54.2 Cervicalgia; G50.0 Trigeminal neuralgia; M54.81 Occipital neuralgia; Z79.899 Other long term (current) drug therapy; Z88.8 Allergy status to other drugs, medicaments and biological substances

== ENCOUNTER → 2019-01-14 | Outpatient (CLI) | payer BC ==
[2019-01-14 13:41] LABS: ALBUMIN 3.7 GM/DL (3.2-5.2); ALT/SGPT 29 U/L (12-78); AMYLASE 50 U/L (25-115); BILIRUBIN,TOTAL 0.4 MG/DL (0.2-1.0); BLOOD UREA NITROGEN 7 MG/DL (7-18); CALCIUM LEVEL 8.8 MG/DL (8.5-10.1); CARBON DIOXIDE LEVEL 31 MEQ/L (21-32); CHLORIDE LEVEL 102 MEQ/L (98-107); CREATININE FOR GFR 0.79 MG/DL (0.55-1.30); GLOMERULAR FILTRATION RATE > 60.0 (>58); GLUCOSE, FASTING 78 MG/DL (70-100); LIPASE 130 U/L (73-393); POTASSIUM SERUM 4.1 MEQ/L (3.5-5.1); SODIUM LEVEL 139 MEQ/L (136-145); TOTAL PROTEIN 6.9 GM/DL (6.4-8.2)
--- NOTE | 2019-01-14 17:51 | REP ---
ABDOMEN, FLAT UPRIGHT PA CHEST, FOUR VIEWS: HISTORY: Pain. Air is present in the small and large intestine. There are no dilated loops of intestine. Several air fluid levels are present. There is no pneumoperitoneum. The lungs are clear. Surgical clips are present in the right upper quadrant. IMPRESSION:Nonspecific bowel gas pattern. Electronically Signed by Demar Schmitt MD 01/14/2019 05:57 P
== END ==
LOC: M WUC 10:07
PROVIDERS: ATTEND Family Medicine
DX: R10.13 Epigastric pain (principal)

== ENCOUNTER → 2019-04-25 | Outpatient (CLI) | payer BC ==
--- NOTE | 2019-05-04 00:57 | ECWPNPC ---
PATIENT NAME: JOSE F MENDEZ : 1975 GENDER: FEMALE VISIT DATE: 04/25/2019 DISCHARGE DATE: 04/25/19 1558 VISIT LOCKED DATE TIME: PHYSICIAN: GALILEO TEMPLETON MD RESOURCE: GALILEO TEMPLETON MD REASON FOR APPOINTMENT 1. PRE SEDATE HISTORY OF PRESENT ILLNESS HISTORY OF PRESENT ILLNESS: PAIN THE PATIENT DESCRIBES THE PAIN... 43 YEAR OLD FEMALE PATIENT WITH A HISTORY OF CHRONIC NECK PAIN. THE PATIENT DESCRIBES THE PAIN ACHING, TENDER SHARP, AND INTERMITTENT WITH A PAIN SCORE OF 1-7/10 DEPENDING ON PHYSICAL ACTIVITY. THE PATIENT SAYS HER PAIN STARTS IN HER NECK AREA AND RADIATES UP INTO HER HEAD. THE PATIENT SAYS THAT SHE HAS HAD THIS PAIN FOR MANY YEARS. PATIENT DENIES UNEXPLAINABLE WEIGHT LOSS, FEVER, CHILLS, NEW CHANGES ON HER URINARY OR BOWEL CONTROL. FALL RISK SCREENING: SCREENING :NO FALLS REPORTED IN THE LAST YEAR CURRENT MEDICATIONS TAKING GABAPENTIN 400 MG CAPSULE 1 CAPSULE ORALLY TWICE A DAY TAKING SPIRONOLACTONE 50 MG TABLET 1 TABLET ORALLY DAILY TAKING LORATADINE 10 MG TABLET 1 TABLET ORALLY ONCE A DAY TAKING RIZATRIPTAN BENZOATE 5 MG TABLET 1 TABLET NEEDED ONE TIME ORALLY ONCE A DAY TAKING BIOTIN MAXIMUM STRENGTH 5000 MCG CAPSULE 1 CAPSULE ORALLY ONCE A DAY TAKING EFFEXOR 150 MGS ORALLY DAILY TAKING VITAMIN D-3 5000 UNIT TABLET 1 TAB ORALLY DAILY NOT-TAKING TIZANIDINE HCL 4 MG TABLET 1 TABLET NEEDED ORALLY THREE TIMES A DAY NOT-TAKING LORAZEPAM 0.5 MG TABLET 1 TABLET NEEDED ORALLY ONCE A DAY NOT-TAKING TRETINOIN 0.025 % CREAM 1 APPLICATION TO AFFECTED AREA IN THE EVENING TO FACE EXTERNALLY ONCE A DAY NOT-TAKING CYMBALTA 30 MG CAPSULE DELAYED RELEASE PARTICLES 1 CAPSULE ORALLY BID MEDICATION LIST REVIEWED AND RECONCILED WITH THE PATIENT PAST MEDICAL HISTORY CHRONIC MIGRANES CHRONIC NECK PAIN 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 SOCIAL HISTORY GENERAL: TOBACCO USE ARE YOU A:FORMER SMOKER HOW LONG HAS IT BEEN SINCE YOU LAST SMOKED?> 10 YEARS PAIN CLINIC PFS, CLERGY, PUBLIC HEALTH REFERRALS HAS THE PATIENT BEEN EDUCATED REGARDING HIS/HER PLAN OF CARE?YES HAS THE PATIENT BEEN EDUCATED REGARDING PAIN, THE RISK FOR PAIN, THE IMPORTANCE OF EFFECTIVE PAIN MANAGEMENT, AND THE PAIN ASSESSMENT PROCESS?YES LATEX QUESTIONNAIRE LATEX ALLERGY : HAVE YOU EVER DEVELOPED ANY TYPE OF REACTION AFTER HANDLING LATEX PRODUCTS SUCH RUBBER GLOVES, CONDOMS, DIAPHRAGMS, BALLOONS, SOCKS, OR UNDERWEAR?NO LATEX ALLERGY : HAVE YOU EVER DEVELOPED ANY TYPE OF REACTION DURING OR AFTER DENTAL APPOINTMENT, VAGINAL/RECTAL EXAMINATION, SURGICAL PROCEDURE, OR ANY OTHER EXPOSURE?NO LATEX RISK : HAVE YOU EVER HAD ANY DIFFICULTY BREATHING OR HIVES AFTER EATING OR HANDLING ANY FRUITS, OR VEGETABLES; SUCH KIWI, BANANAS, STONE FRUITS, OR CHESTNUTSNO LATEX RISK : DO YOU HAVE A PREVIOUS PERSONAL HISTORY OF MORE THAN NINE SURGERIES, SPINA BIFIDA, OR REPEATED CATHERTIZATIONS? NO LATEX RISK : ARE YOU FREQUENTLY EXPOSED TO LATEX PRODUCTS IN YOUR OCCUPATION?NO DATE ASKED : 04/25/2019 CAFFEINE CAFFEINE USE?NO ADVANCE DIRECTIVE ADVANCE DIRECTIVE DISCUSSED WITH PATIENT:YES 04/25/19 PT DOES NOT HAVE ANY ADVANCED DIRECTIVES AND SHE DECLINES INFORMATION ON HCP AT THIS TIME. AD EDUCATION LEVEL OF EDUCATION:[id number] EVANGELICAL [employer] LANGUAGES SPOKEN:WOLOF DOMESTIC VIOLENCE DO YOU FEEL SAFE IN YOUR ENVIRONMENT?YES ALCOHOL SCREENING DID YOU HAVE A DRINK CONTAINING ALCOHOL IN THE PAST YEAR?YES HOW OFTEN DID YOU HAVE A DRINK CONTAINING ALCOHOL IN THE PAST YEAR?MONTHLY OR LESS (1 POINT) HOW MANY DRINKS DID YOU HAVE ON A TYPICAL DAY WHEN YOU WERE DRINKING IN THE PAST YEAR?1 OR 2 (0 POINTS) HOW OFTEN DID YOU HAVE SIX OR MORE DRINKS ON ONE OCCASION IN THE PAST YEAR?NEVER (0 POINTS) POINTS1 INTERPRETATIONNEGATIVE RECREATIONAL DRUG USE DRUG USE?NO LEARNING BARRIERS / SPECIAL NEEDS BARRIERS TO LEARNING?NO HEARING IMPAIRED?NO VISION IMPAIRED?YES :CORRECTIVE LENSES COGNITIVELY IMPAIRED?NO READINESS TO LEARN?YES LEARNING PREFERENCES?NO LEARNING CAPABILITIES PRESENT?YES EMOTIONAL BARRIERS?NO SPECIAL DEVICES?NO RESTAURANT LINE SERVER NEEDED?NO REVIEWED WITH PT 08/20/18 9844 BVREVIEWED WITH PT 09/14/18 4461 BV. HOSPITALIZATION/MAJOR DIAGNOSTIC PROCEDURE SURGERIES CHILD REVIEW OF SYSTEMS REVIEWED BY: PROVIDER: GALILEO TEMPLETON MD . CONSTITUTIONAL: ANY CHANGE IN YOUR MEDICAL CONDITION? NO . CHILLS NO . FEVER NO . INFECTION: DO YOU HAVE NEW INFECTIONS? NO . DO YOU HAVE HISTORY OF MRSA? NO . MUSCULOSKELETAL: ANY NEW PATTERNS OF PAIN OR NUMBNESS? NO . GASTROENTEROLOGY: ANY NEW CHANGE IN BOWEL CONTROL? NO . GENITOURINARY: ANY NEW CHANGE IN BLADDER CONTROL? NO . IS THERE A CHANCE YOU COULD BE ? NO . HEMATOLOGY/LYMPH: DO YOU TAKE ANY BLOOD THINNERS? (FOR EXAMPLE- COUMADIN, PLAVIX, AGGRENOX, PLATEL, PRADAXA, OR XARELTO) NO . WHEN WAS YOUR LAST DOSE? DATE: TIME: . NEUROLOGY: HAVE YOU FALLEN IN THE PAST 12 MONTHS? YES X 1 THOUGHT SHE WAS AT THE BOTTOM OF THE STAIRS AND SHE WASN'T-BRUISED LEFT KNEE. NOT EVALUATED AFTER . ANY NEW EXTREMITY NUMBNESS OR WEAKNESS? YES, RIGHT HAND DUE TO CARPAL TUNNEL SURGERY . CARDIOLOGY: DO YOU HAVE A PACEMAKER OR DEFIBRILLATOR? NO . RESPIRATORY: HAVE YOU BEEN SICK IN THE PAST WEEK? NO . FEVER NO . FLU LIKE SYMPTOMS? NO . COUGH NO . INTEGUMENTARY: DO YOU HAVE ANY RASHES OR OPEN SORES? NO . ALLERGIC/IMMUNO: ARE YOU ALLERGIC TO IV DYE? NO . ANY NEW ALLERGIES? NO . PSYCHIATRIC: DO YOU HAVE THOUGHTS OF HURTING YOURSELF OR SOMEONE ELSE? NO . ARE YOU ABUSED, NEGLECTED, OR IN AN UNSAFE ENVIRONMENT? NO . ENDOCRINOLOGY: ARE YOU DIABETIC? NO . OTHER: DO YOU NEED ANY PRESCRIPTIONS? NO . IF YES, PLEASE LIST: ____ . ANY NEW PROBLEMS WITH YOUR MEDICATIONS? NO . WHEN DID YOU LAST EAT? ____ . WHEN DID YOU LAST DRINK? ____ . WHAT DID YOU LAST DRINK? ____ . NAME OF PERSON DRIVING YOU HOME? ____ . DO YOU HAVE ANY OTHER QUESTIONS OR CONCERNS NO . VITAL SIGNS WT 207.8 LBS, HT 61 IN, BMI 39.26 INDEX, BP 132/92 MM HG, HR 96 /MIN, RR 16 /MIN, TEMP 97.5 F, OXYGEN SAT % 96%, SAFE IN ENV? (Y/N) Y, NA INITIALS SC 14:37, REVIEWED BY: AD. EXAMINATION GENERAL EXAMINATION: PATIENT IS ALERT O X 3 AND COOPERATIVE. LUNGS CLEAR, TO AUSCULTATION. HEART: NO MURMURS OR GALLOPS; FACIAL CRANIAL NERVES ARE GROSSLY NORMAL. GOOD SYMMETRY OF FACIAL MUSCLE MOVEMENT. NORMAL VISUAL MONSIVAIS. TENDERNESS IN THE NECK AREA. PAIN INCREASES OVER THE CERVICAL FACET JOINTS WITH EXTENSION AND LATERAL ROTATION OF THE NECK. MRI OF THE CERVICAL SPINE DONE ON 05/30/2018 SHOWS FACET ARTHROPATHY CHANGES. ASSESSMENTS SPONDYLOSIS OF CERVICAL REGION WITHOUT MYELOPATHY OR RADICULOPATHY - M47.812 (PRIMARY) TREATMENT SPONDYLOSIS OF CERVICAL REGION WITHOUT MYELOPATHY OR RADICULOPATHY CLINICAL NOTES: WE DISCUSSED SEVERAL ISSUES WITH MRS. MENDEZ'S PAIN MANAGEMENT CASE. DUE TO THE CERVICAL SPONDYLOSIS, I WOULD LIKE TO MOVE FORWARD WITH A BILATERAL C3-C4, C5-C6 THERAPEUTIC CERVICAL FACET BLOCK. WE DISCUSSED THE BENEFITS, RISKS, AND ALTERNATIVES OF THE INJECTION AND THE PATIENT WOULD LIKE TO PROCEED. THE PATIENT WOULD LIKE TO MOVE FORWARD WITH IV SEDATION DUE TO PAIN AND ANXIETY ASSOCIATED WITH THE PROCEDURE. THE PATIENT WILL FOLLOW UP A FEW WEEKS AFTER THE INJECTION. INSTRUCTIONS WERE GIVEN, QUESTIONS WERE ANSWERED, PATIENT REPORTS UNDERSTANDING AND AGREES WITH THE PLAN. I, GERMAN KEBEDE, DOCUMENTED THE ABOVE INFORMATION ACTING A SCRIBE FOR DR. TEMPLETON. I HAVE REVIEWED THE ABOVE DOCUMENT, WRITTEN BY GERMAN RIVER[place] AND I VERIFY THAT IT IS ACCURATE. . PRE[facility] MEDICINE PAIN CLINIC TEACHING: MEDICATIONS FACET BLOCK HANDOUT PRINTED REVIEWED AND GIVEN TO PT. EM. PROCEDURE CODES FA211 ESTABILISHED PATIENT [facility] CHARGE [id number] CURRENT MEDS W/DOSAGES DOCUMENTED G8730 PAIN ASSESS POS TOOL F/U PLAN DOC DISPOSITION & COMMUNICATION FOLLOW UP 3 WEEKS ELECTRONICALLY SIGNED BY GALILEO TEMPLETON MD, MD ON 05/03/2019 AT 03:45 PM EDT DISCLAIMER : THIS IS A VISIT SUMMARY EXTRACTED FROM THE [facility] CHART. IT IS NOT A COPY OF THE [facility] PROGRESS NOTE. MTDD
== END ==
LOC: M PAIN 14:30
PROVIDERS: ATTEND Anesthesiology
DX: M47.812 Spondylosis without myelopathy or radiculopathy, cervical region (principal); G43.709 Chronic migraine without aura, not intractable, without status migrainosus; G50.0 Trigeminal neuralgia; M54.81 Occipital neuralgia; M79.10 Myalgia, unspecified site; G56.01 Carpal tunnel syndrome, right upper limb; Z87.891 Personal history of nicotine dependence; Z98.84 Bariatric surgery status; Z79.899 Other long term (current) drug therapy; Z88.8 Allergy status to other drugs, medicaments and biological substances

== ENCOUNTER → 2019-04-28 | Outpatient (CLI) | payer BC ==
[~2019-04-28] MED LIST changes: +BUPIVACAINE HCL 0.25% 30 ML VIAL As Ordered ONE; +ISOVUE-M 300 61% 15ML VIAL (Q9967) As Ordered ONE; +LIDOCAINE 1% SDV INJ 30 ML VIAL As Ordered ONE; +MIDAZOLAM INJ 2 MG/2 ML VIAL (J2250) As Ordered ONE; +TRIAMCINOLONE ACETONIDE SUSP 40 MG/ML VIAL (J3301) As Ordered ONE; +fentaNYL 100 MCG/2 ML INJECTION (J3010) As Ordered ONE
--- NOTE | 2019-04-28 14:11 | REP ---
PARTIAL CERVICAL SPINE: HISTORY: Bilateral cervical facet block for pain. 7 seconds of fluoroscopy time is reported. Findings: A single last image hold fluoroscopically obtained spot radiograph of the neck documents needle position and contrast injection associated with cervical facet injection procedure. Electronically Signed by Ronn Natarajan MD 04/28/2019 02:28 P
--- NOTE | 2019-05-05 01:22 | ECWPNPC ---
PATIENT NAME: JOSE F MENDEZ : 1975 GENDER: FEMALE VISIT DATE: 04/28/2019 DISCHARGE DATE: 04/28/19 1037 VISIT LOCKED DATE TIME: PHYSICIAN: GALILEO TEMPLETON MD RESOURCE: GALILEO TEMPLETON MD REASON FOR APPOINTMENT 1. CERVICAL FACET BLOCK W/ IV SEDATION. HISTORY OF PRESENT ILLNESS HISTORY OF PRESENT ILLNESS: PAIN THE PATIENT DESCRIBES THE PAIN... FALL RISK SCREENING: SCREENING :NO FALLS REPORTED IN THE LAST YEAR CURRENT MEDICATIONS TAKING GABAPENTIN 400 MG CAPSULE 1 CAPSULE ORALLY TWICE A DAY, NOTES: 04-28-19699 TAKING SPIRONOLACTONE 50 MG TABLET 1 TABLET ORALLY DAILY, NOTES: 799 TAKING LORATADINE 10 MG TABLET 1 TABLET ORALLY ONCE A DAY, NOTES: 04-27-19699 TAKING RIZATRIPTAN BENZOATE 5 MG TABLET 1 TABLET NEEDED ONE TIME ORALLY ONCE A DAY, NOTES: LAST WEEK TAKING BIOTIN MAXIMUM STRENGTH 5000 MCG CAPSULE 1 CAPSULE ORALLY ONCE A DAY, NOTES: 04-27-19799 TAKING EFFEXOR 150 MGS ORALLY DAILY, NOTES: 04-27-19799 TAKING VITAMIN D-3 5000 UNIT TABLET 1 TAB ORALLY DAILY, NOTES: 04-27-19699 TAKING FLONASE 50 MCG/DOSE INHALER 1 SPRAY IN EACH NOSTRIL NASALLY TWICE A DAY UNKNOWN TIZANIDINE HCL 4 MG TABLET 1 TABLET NEEDED ORALLY THREE TIMES A DAY UNKNOWN LORAZEPAM 0.5 MG TABLET 1 TABLET NEEDED ORALLY ONCE A DAY UNKNOWN TRETINOIN 0.025 % CREAM 1 APPLICATION TO AFFECTED AREA IN THE EVENING TO FACE EXTERNALLY ONCE A DAY UNKNOWN CYMBALTA 30 MG CAPSULE DELAYED RELEASE PARTICLES 1 CAPSULE ORALLY BID MEDICATION LIST REVIEWED AND RECONCILED WITH THE PATIENT PAST MEDICAL HISTORY CHRONIC MIGRANES CHRONIC NECK PAIN 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 CONSTITUTIONAL: ANY CHANGE IN YOUR MEDICAL CONDITION? NO . CHILLS NO . FEVER NO . INFECTION: DO YOU HAVE NEW INFECTIONS? NO . DO YOU HAVE HISTORY OF MRSA? NO . MUSCULOSKELETAL: ANY NEW PATTERNS OF PAIN OR NUMBNESS? NO . GASTROENTEROLOGY: ANY NEW CHANGE IN BOWEL CONTROL? NO . GENITOURINARY: ANY NEW CHANGE IN BLADDER CONTROL? NO . IS THERE A CHANCE YOU COULD BE ? NO . HEMATOLOGY/LYMPH: DO YOU TAKE ANY BLOOD THINNERS? (FOR EXAMPLE- COUMADIN, PLAVIX, AGGRENOX, PLATEL, PRADAXA, OR XARELTO) NO . WHEN WAS YOUR LAST DOSE? DATE: TIME: . NEUROLOGY: HAVE YOU FALLEN IN THE PAST 12 MONTHS? YES . ANY NEW EXTREMITY NUMBNESS OR WEAKNESS? NO . CARDIOLOGY: DO YOU HAVE A PACEMAKER OR DEFIBRILLATOR? NO . RESPIRATORY: HAVE YOU BEEN SICK IN THE PAST WEEK? NO . FEVER NO . FLU LIKE SYMPTOMS? NO . COUGH NO . INTEGUMENTARY: DO YOU HAVE ANY RASHES OR OPEN SORES? NO . ALLERGIC/IMMUNO: ARE YOU ALLERGIC TO IV DYE? NO . ANY NEW ALLERGIES? NO . PSYCHIATRIC: DO YOU HAVE THOUGHTS OF HURTING YOURSELF OR SOMEONE ELSE? NO . ARE YOU ABUSED, NEGLECTED, OR IN AN UNSAFE ENVIRONMENT? NO . ENDOCRINOLOGY: ARE YOU DIABETIC? NO . OTHER: DO YOU NEED ANY PRESCRIPTIONS? NO . IF YES, PLEASE LIST: ____ . ANY NEW PROBLEMS WITH YOUR MEDICATIONS? NO . WHEN DID YOU LAST EAT? ____04-27-191999 . WHEN DID YOU LAST DRINK? ____04-28-1930 . WHAT DID YOU LAST DRINK? ____WATER . NAME OF PERSON DRIVING YOU HOME? ____FOREIGN NOGUERA . DO YOU HAVE ANY OTHER QUESTIONS OR CONCERNS NO . VITAL SIGNS WT 207.8 LBS, HT 61 IN, BMI 39.26 INDEX, BP 130/83 MM HG, HR 91 /MIN, RR 16 /MIN, TEMP 97.2 F, OXYGEN SAT % 98%, SAFE IN ENV? (Y/N) YES, NA INITIALS ND 08:44, REVIEWED BY: KG. ASSESSMENTS SPONDYLOSIS OF CERVICAL REGION WITHOUT MYELOPATHY OR RADICULOPATHY - M47.812 (PRIMARY) TREATMENT SPONDYLOSIS OF CERVICAL REGION WITHOUT MYELOPATHY OR RADICULOPATHY SMC FACET BLOCK (PAIN)[id number] PROCEDURES PN CERVICAL FACET BLOCK LOW BILATERAL CERVICAL PRE PROCEDURE DIAGNOSIS CERVICAL SPONDYLOSIS POST PROCEDURE DIAGNOSIS CERVICAL SPONDYLOSIS PROCEDURE BILATERAL C2-C3 AND BILATERAL C3-C4 CERVICAL FACET BLOCK SURGEON DR. GALILEO TEMPLETON CHEMISTRY LABORATORY TECHNICIAN NONE ANESTHESIA LOCAL WITH IV SEDATION PRE PROCEDURE NOTE THE PATIENT HAS HISTORY OF CHRONIC CERVICAL PAIN. I EVALUATE THE PATIENT AND REVIEWED THE CHART. I WENT OVER THE RISKS, ALTERNATIVES, AND BENEFITS ASSOCIATED WITH THIS PROCEDURE. THE PATIENT WOULD LIKE TO PROCEED AND GIVE CONSENT TO PERFORMED THE PROCEDURE. PATIENT WOULD LIKE TO MOVE FORWARD WITH IV SEDATION DUE TO DISCOMFORT, PAIN AND ANXIETY ASSOCIATED WITH THE PROCEDURE. THE PATIENT DENIES UNEXPLAINABLE WEIGHT LOSS, FEVER, CHILLS, OR NEW CHANGES IN URINARY OR BOWEL CONTROL. DESCRIPTION OF PROCEDURE THE PATIENT WAS BROUGHT TO THE PROCEDURE ROOM AND PLACED IN THE PRONE POSITION. THE CERVICOTHORACIC AREA WAS CLEANED WITH CHLORAPREP SOLUTION AND DRAPED ASEPTICALLY. THE PROCEDURE WAS DONE UNDER STERILE CONDITIONS. I CHECKED LATERALITY AND THE LEVEL WHERE THE PROCEDURE WAS GOING TO BE PERFORMED WITH THE PATIENT AND THE SUPPORTING STAFF AT THE MOMENT OF THE TIME OUT IN THE PROCEDURE ROOM. UNDER FLUOROSCOPIC GUIDANCE, TARGET POINT WAS SELECTED AT THE RIGHT AND LEFT C2-C3 AND RIGHT AND LEFT C3-C4 CERVICAL FACET JOINT. TARGET POINTS WERE SELECTED AFTER LATERAL ROTATION AND TILT OF THE MAGNIFIER OF THE C-ARM. LIDOCAINE 0.5% WAS USED TO NUMB THE SKIN AND THE SUBCUTANEOUS TISSUE BELOW IT. SPINAL NEEDLES, 22-GAUGE, WERE ADVANCED UNDER FLUOROSCOPIC GUIDANCE AND FOLLOWING PATIENT FEEDBACK UNTIL THE TARGETS WERE TOUCHED. THE POSITION OF THE NEEDLES WAS VERIFIED WITH AP AND LATERAL VIEWS. AFTER PROPER POSITION OF THE NEEDLES WAS ACHIEVED, ISOVUE M DYE 30, 0.1 ML WAS INJECTED SHOWING SPREAD OF THE DYE. THEN A SOLUTION OF 0.9 ML OF BUPIVACAINE 0.125% AND KENALOG 10 MG WAS INJECTED AT EACH SITE. PATIENT RECEIVED VERSED 2 MG AND FENTANYL 100 MCG IV DIVIDED DOSES. THERE WAS NO EVIDENCE OF BLOOD, PARESTHESIA OR CEREBROSPINAL FLUID DURING THE PROCEDURE. THE PATIENT WAS SENT TO THE RECOVERY ROOM. THE PATIENT WAS MOVING THE EXTREMITIES AND DOING WELL. THERE WAS NO COMPLICATION DURING THE PROCEDURE. FLUOROSCOPY TIME WAS 7 SECONDS. FACE TO FACE TIME WAS 14 MINUTES. POST PROCEDURE NOTE THE PATIENT WILL BE SEEN IN A FOLLOW UP IN THE NEXT FEW WEEKS. INSTRUCTIONS WERE GIVEN, QUESTIONS WERE ANSWERED, AND THE PATIENT EXPRESSED UNDERSTANDING AND AGREES WITH THE PLAN. I, GERMAN KEBEDE, DOCUMENTED THE ABOVE INFORMATION ACTING A SCRIBE FOR DR. TEMPLETON. I HAVE REVIEWED THE ABOVE DOCUMENT, WRITTEN BY GERMAN EARL AND I VERIFY THAT IT IS ACCURATE. PROCEDURE CODES 6045F RADXPS IN END [id number] PXD [id number] INJ PARAVERT F JNT C/T 1 LEV, MODIFIERS: 50 [id number] INJ PARAVERT F JNT C/T 2 LEV, MODIFIERS: 50 [id number] MOD SED SAME PHYS/QHP 5/>YRS DISPOSITION & COMMUNICATION FOLLOW UP 3 WEEKS ELECTRONICALLY SIGNED BY GALILEO TEMPLETON MD, MD ON 05/04/2019 AT 01:16 PM EDT DISCLAIMER : THIS IS A VISIT SUMMARY EXTRACTED FROM THE [employer] CHART. IT IS NOT A COPY OF THE [employer] PROGRESS NOTE. MTDD
== END ==
LOC: M PAIN 08:30
PROVIDERS: ATTEND Anesthesiology
DX: M47.812 Spondylosis without myelopathy or radiculopathy, cervical region (principal); G43.709 Chronic migraine without aura, not intractable, without status migrainosus; G50.0 Trigeminal neuralgia; M54.81 Occipital neuralgia; M79.10 Myalgia, unspecified site; G56.01 Carpal tunnel syndrome, right upper limb; M54.40 Lumbago with sciatica, unspecified side; Z79.899 Other long term (current) drug therapy; Z98.84 Bariatric surgery status; Z88.8 Allergy status to other drugs, medicaments and biological substances
CPT/HCPCS: 64490; 64491; 99152; J2250; J3010; J3301; Q9967

== ENCOUNTER → 2019-05-04 | Outpatient (CLI) | payer BC ==
[~2019-05-04] MED LIST changes: +BUPIVACAINE HCL 0.25% 10 ML VIAL As Ordered ONE; -ISOVUE-M 300 61% 15ML VIAL (Q9967) As Ordered ONE; -LIDOCAINE 1% SDV INJ 30 ML VIAL As Ordered ONE; -MIDAZOLAM INJ 2 MG/2 ML VIAL (J2250) As Ordered ONE; +ONDANSETRON 4 MG ORAL DISINTEGRATING TAB (Q0162 PER 1MG) As Ordered ONE; +diazePAM 5 MG TAB As Ordered ONE; -fentaNYL 100 MCG/2 ML INJECTION (J3010) As Ordered ONE
--- NOTE | 2019-05-12 23:49 | ECWPNPC ---
PATIENT NAME: JOSE F MENDEZ : 1975 GENDER: FEMALE VISIT DATE: 05/04/2019 DISCHARGE DATE: 05/04/19 1346 VISIT LOCKED DATE TIME: PHYSICIAN: GALILEO TEMPLETON MD RESOURCE: GALILEO TEMPLETON MD REASON FOR APPOINTMENT 1. SUPRAORBITAL MAXILLARY NERVE BLOCK HISTORY OF PRESENT ILLNESS HISTORY OF PRESENT ILLNESS: PAIN THE PATIENT DESCRIBES THE PAIN... 43 YEAR OLD FEMALE PATIENT WITH A HISTORY OF CHRONIC MIGRAINES AND NECK PAIN. THE PATIENT DESCRIBES THE PAIN ACHING, SHARP, STABBING, SHOOTING, AND INTERMITTENT WITH A PAIN SCORE OF 1-8/10 DEPENDING ON PHYSICAL ACTIVITY. THE PATIENT RECEIVED A CERVICAL THERAPEUTIC FACET BLOCK ON 04/28/2019 AND REPORTS THAT THE FOLLOWING DAY SHE HAD FACIAL PAIN OVER THE LEFT SIDE. THE PATIENT REPORTS HAVING A HISTORY OF TRIGEMINAL NEURALGIA. THE PATIENT IS CURRENTLY USING GABAPENTIN AND TYLENOL TO AID IN PAIN RELIEF. THE PATIENT SAYS THAT USING THE TYLENOL MAKES THE PAIN OVER HER FACE BEARABLE. PATIENT DENIES UNEXPLAINABLE WEIGHT LOSS, FEVER, CHILLS, NEW CHANGES ON HER URINARY OR BOWEL CONTROL. FALL RISK SCREENING: SCREENING :NO FALLS REPORTED IN THE LAST YEAR CURRENT MEDICATIONS TAKING GABAPENTIN 400 MG CAPSULE 1 CAPSULE ORALLY TWICE A DAY TAKING SPIRONOLACTONE 50 MG TABLET 1 TABLET ORALLY DAILY TAKING LORATADINE 10 MG TABLET 1 TABLET ORALLY ONCE A DAY TAKING RIZATRIPTAN BENZOATE 5 MG TABLET 1 TABLET NEEDED ONE TIME ORALLY ONCE A DAY TAKING BIOTIN MAXIMUM STRENGTH 5000 MCG CAPSULE 1 CAPSULE ORALLY ONCE A DAY TAKING EFFEXOR 150 MGS ORALLY DAILY TAKING VITAMIN D-3 5000 UNIT TABLET 1 TAB ORALLY DAILY TAKING FLONASE 50 MCG/DOSE INHALER 1 SPRAY IN EACH NOSTRIL NASALLY TWICE A DAY NOT-TAKING TIZANIDINE HCL 4 MG TABLET 1 TABLET NEEDED ORALLY THREE TIMES A DAY NOT-TAKING LORAZEPAM 0.5 MG TABLET 1 TABLET NEEDED ORALLY ONCE A DAY NOT-TAKING TRETINOIN 0.025 % CREAM 1 APPLICATION TO AFFECTED AREA IN THE EVENING TO FACE EXTERNALLY ONCE A DAY NOT-TAKING CYMBALTA 30 MG CAPSULE DELAYED RELEASE PARTICLES 1 CAPSULE ORALLY BID MEDICATION LIST REVIEWED AND RECONCILED WITH THE PATIENT PAST MEDICAL HISTORY CHRONIC MIGRANES CHRONIC NECK PAIN 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 SOCIAL HISTORY GENERAL: TOBACCO USE ARE YOU A:FORMER SMOKER HOW LONG HAS IT BEEN SINCE YOU LAST SMOKED?> 10 YEARS EDUCATION LEVEL OF EDUCATION:[employer] DIET: REGULAR. LANGUAGE LANGUAGES SPOKEN:KYRGYZ DOMESTIC VIOLENCE DO YOU FEEL SAFE IN YOUR ENVIRONMENT?YES RECREATIONAL DRUG USE DRUG USE?NO EXERCISE: NO REGULAR EXERCISE. LEARNING BARRIERS / SPECIAL NEEDS BARRIERS TO LEARNING?NO HEARING IMPAIRED?NO VISION IMPAIRED?YES :CORRECTIVE LENSES COGNITIVELY IMPAIRED?NO READINESS TO LEARN?YES LEARNING PREFERENCES?NO LEARNING CAPABILITIES PRESENT?YES EMOTIONAL BARRIERS?NO SPECIAL DEVICES?NO DUSTER TENDER NEEDED?NO PAIN CLINIC PFS, CLERGY, PUBLIC HEALTH REFERRALS HAS THE PATIENT BEEN EDUCATED REGARDING HIS/HER PLAN OF CARE?YES HAS THE PATIENT BEEN EDUCATED REGARDING PAIN, THE RISK FOR PAIN, THE IMPORTANCE OF EFFECTIVE PAIN MANAGEMENT, AND THE PAIN ASSESSMENT PROCESS?YES LATEX QUESTIONNAIRE LATEX ALLERGY : HAVE YOU EVER DEVELOPED ANY TYPE OF REACTION AFTER HANDLING LATEX PRODUCTS SUCH RUBBER GLOVES, CONDOMS, DIAPHRAGMS, BALLOONS, SOCKS, OR UNDERWEAR?NO LATEX ALLERGY : HAVE YOU EVER DEVELOPED ANY TYPE OF REACTION DURING OR AFTER DENTAL APPOINTMENT, VAGINAL/RECTAL EXAMINATION, SURGICAL PROCEDURE, OR ANY OTHER EXPOSURE?NO LATEX RISK : HAVE YOU EVER HAD ANY DIFFICULTY BREATHING OR HIVES AFTER EATING OR HANDLING ANY FRUITS, OR VEGETABLES; SUCH KIWI, BANANAS, STONE FRUITS, OR CHESTNUTSNO LATEX RISK : DO YOU HAVE A PREVIOUS PERSONAL HISTORY OF MORE THAN NINE SURGERIES, SPINA BIFIDA, OR REPEATED CATHERTIZATIONS? NO LATEX RISK : ARE YOU FREQUENTLY EXPOSED TO LATEX PRODUCTS IN YOUR OCCUPATION?NO DATE ASKED : 04/25/2019 CAFFEINE CAFFEINE USE?NO ADVANCE DIRECTIVE ADVANCE DIRECTIVE DISCUSSED WITH PATIENT:YES 04/25/19 PT DOES NOT HAVE ANY ADVANCED DIRECTIVES AND SHE DECLINES INFORMATION ON HCP AT THIS TIME. 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 REVIEWED WITH PT 08/20/18 0724 BVREVIEWED WITH PT 09/14/18 1601 BV. HOSPITALIZATION/MAJOR DIAGNOSTIC PROCEDURE SURGERIES CHILD REVIEW OF SYSTEMS REVIEWED BY: PROVIDER: GALILEO TEMPLETON MD . CONSTITUTIONAL: ANY CHANGE IN YOUR MEDICAL CONDITION? NO . CHILLS NO . FEVER NO . INFECTION: DO YOU HAVE NEW INFECTIONS? NO . DO YOU HAVE HISTORY OF MRSA? NO . MUSCULOSKELETAL: ANY NEW PATTERNS OF PAIN OR NUMBNESS? NO . GASTROENTEROLOGY: ANY NEW CHANGE IN BOWEL CONTROL? NO . GENITOURINARY: ANY NEW CHANGE IN BLADDER CONTROL? NO . IS THERE A CHANCE YOU COULD BE ? NO . HEMATOLOGY/LYMPH: DO YOU TAKE ANY BLOOD THINNERS? (FOR EXAMPLE- COUMADIN, PLAVIX, AGGRENOX, PLATEL, PRADAXA, OR XARELTO) NO . WHEN WAS YOUR LAST DOSE? DATE: TIME: . NEUROLOGY: HAVE YOU FALLEN IN THE PAST 12 MONTHS? YES . ANY NEW EXTREMITY NUMBNESS OR WEAKNESS? YES - CARPAL TUNNEL SURGERY . CARDIOLOGY: DO YOU HAVE A PACEMAKER OR DEFIBRILLATOR? NO . RESPIRATORY: HAVE YOU BEEN SICK IN THE PAST WEEK? NO . FEVER NO . FLU LIKE SYMPTOMS? NO . COUGH NO . INTEGUMENTARY: DO YOU HAVE ANY RASHES OR OPEN SORES? NO . ALLERGIC/IMMUNO: ARE YOU ALLERGIC TO IV DYE? NO . ANY NEW ALLERGIES? NO . PSYCHIATRIC: DO YOU HAVE THOUGHTS OF HURTING YOURSELF OR SOMEONE ELSE? NO . ARE YOU ABUSED, NEGLECTED, OR IN AN UNSAFE ENVIRONMENT? NO . ENDOCRINOLOGY: ARE YOU DIABETIC? NO . OTHER: DO YOU NEED ANY PRESCRIPTIONS? NO . IF YES, PLEASE LIST: ____ . ANY NEW PROBLEMS WITH YOUR MEDICATIONS? NO . WHEN DID YOU LAST EAT? ____ . WHEN DID YOU LAST DRINK? ____ . WHAT DID YOU LAST DRINK? ____ . NAME OF PERSON DRIVING YOU HOME? ____ . DO YOU HAVE ANY OTHER QUESTIONS OR CONCERNS NO . VITAL SIGNS WT 206.6 LBS, HT 61 IN, BMI 39.03 INDEX, BP 140/95 MM HG, HR 96 /MIN, RR 16 /MIN, TEMP 97.6 F, OXYGEN SAT % 97. EXAMINATION GENERAL EXAMINATION: PATIENT IS ALERT O X 3 AND COOPERATIVE. PATIENT APPEARS UNCOMFORTABLE DUE TO PAIN OVER HER FACE. INJECTION SITE ON THE NECK LOOKS GOOD. TENDERNESS OF THE DISTRIBUTION OF THE SUPRAORBITAL AND MAXILLARY NERVES. ASSESSMENTS TRIGEMINAL NEURALGIA - G50.0 (PRIMARY) LEFT FACIAL PAIN - R51 SPONDYLOSIS OF CERVICAL REGION WITHOUT MYELOPATHY OR RADICULOPATHY - M47.812 TREATMENT TRIGEMINAL NEURALGIA CLINICAL NOTES: WE DISCUSSED SEVERAL ISSUES WITH MRS. MENDEZ'S PAIN MANAGEMENT CASE. DUE TO THE TRIGEMINAL NEURALGIA, I WOULD LIKE TO MOVE FORWARD WITH A LEFT SUPRAORBITAL AND MAXILLARY NERVE BLOCK TODAY. WE DISCUSSED THE BENEFITS, RISKS, AND ALTERNATIVES OF THE INJECTION AND THE PATIENT WOULD LIKE TO PROCEED. THE PATIENT WILL ALSO INCREASE HER GABAPENTIN TO 3 TIMES PER DAY. INSTRUCTIONS WERE GIVEN, QUESTIONS WERE ANSWERED, PATIENT REPORTS UNDERSTANDING AND AGREES WITH THE PLAN. I, GERMAN KEBEDE, DOCUMENTED THE ABOVE INFORMATION ACTING A SCRIBE FOR DR. TEMPLETON. I HAVE REVIEWED THE ABOVE DOCUMENT, WRITTEN BY GERMAN RIVERAIBCarmine AND I VERIFY THAT IT IS ACCURATE. PROCEDURES PRE-PROCEDURE DIAGNOSIS: TRIGEMINAL NEURALGIAPOST-PROCEDURE DIAGNOSIS: SAMEPROCEDURE: LEFT SUPRAORBITAL NERVE AND LEFT MAXILLARY NERVE BLOCKSURGEON: OSWALDO GRIMESTHESIA: LOCALCOMPLICATIONS: NONEPRE-PROCEDURE NOTE: THE PATIENT IS SUFFERING OF CHRONIC FACIAL PAIN AND NEURALGIA. SHE HAS HISTORY OF TRIGEMINAL NEURALGIA. SHE HAS SEVERE FACIAL PAIN AND NEURALGIAS AND SEVERE HEADACHES. I WENT THOUGHT THE RISK ALTERNATIVES AND BENEFITS ASSOCIATED WITH THIS PROCEDURE AND THE PATIENT EXPRESS SHE WANTS TO MOVE FORWARD. PROCEDURE NOTE: AFTER CONSENT WAS REVIEWED WITH THE PATIENT SHE WAS BROUGHT TO THE PROCEDURE ROOM AND PLACED IN THE SUPINE POSITION. THE LEFT SUPRAORBITAL AND MAXILLARY AREA WAS CLEANED WITH ALCOHOL SOLUTION. USING A 30GAUGE NEEDLE I INJECT THE LEFT SUPRAORBITAL AREA 0.5 CM ABOVE THE MEDIAL ASPECT OF THE EYEBROW WITH 3 CC OF BUPIVACAINE 0.125% AND KENALOG 5MG AT EACH LOCATION. THEN I INJECTED THE LEFT MAXILLARY NERVE AREA 3 CC OF BUPIVACAINE 0.125% AND KENALOG 5MG AT EACH LOCATION APPROXIMATELY 1 INCH CAUDAL OF A VERTICAL LINE FROM THE PATIENT'S PUPILS. THERE WAS NO EVIDENCE OF BLOOD, PARESTHESIA OR ANY COMPLICATION DURING THE PROCEDURE. POST-PROCEDURE NOTE: I DISCUSSED ALTERNATIVES WITH THE PATIENT. I AM LOOKING FOR LONG LASTING PAIN RELIEF WITH THIS INTERVENTION. THE PATIENT REPORTS UNDERSTANDING AND AGREES. THE PATIENT WILL BE SEEN IN A FOLLOW UP WITHIN THE NEXT COUPLE WEEKS. INSTRUCTIONS WERE GIVEN, QUESTIONS WERE ANSWERED AND THE PATIENT REPORTS UNDERSTANDING. I, GERMAN KEBEDE, DOCUMENTED THE ABOVE INFORMATION ACTING A SCRIBE FOR DR. TEMPLETON. I HAVE REVIEWED THE ABOVE DOCUMENT, WRITTEN BY GERMAN RIVERAIBCarmine AND I VERIFY THAT IT IS ACCURATE. PROCEDURE CODES 87919 N BLOCK INJ TRIGEMINAL, UNITS: 2.00 , MODIFIERS: LT DISPOSITION & COMMUNICATION FOLLOW UP 3 WEEKS ELECTRONICALLY SIGNED BY GALILEO TEMPLETON MD, MD ON 05/12/2019 AT 01:54 PM EDT DISCLAIMER : THIS IS A VISIT SUMMARY EXTRACTED FROM THE [employer] CHART. IT IS NOT A COPY OF THE [employer] PROGRESS NOTE. KASSI
== END ==
LOC: M PAIN 14:45
PROVIDERS: ATTEND Anesthesiology
DX: G50.0 Trigeminal neuralgia (principal); M47.812 Spondylosis without myelopathy or radiculopathy, cervical region; G43.709 Chronic migraine without aura, not intractable, without status migrainosus; M54.81 Occipital neuralgia; M79.18 Myalgia, other site; Z87.891 Personal history of nicotine dependence; Z79.899 Other long term (current) drug therapy; Z88.8 Allergy status to other drugs, medicaments and biological substances
CPT/HCPCS: 64400; J3301; Q0162

== ENCOUNTER → 2019-08-17 | Outpatient (REF) | payer BC ==
[~2019-08-17] MED LIST changes: -BUPIVACAINE HCL 0.25% 10 ML VIAL As Ordered ONE; -BUPIVACAINE HCL 0.25% 30 ML VIAL As Ordered ONE; -ONDANSETRON 4 MG ORAL DISINTEGRATING TAB (Q0162 PER 1MG) As Ordered ONE; -TRIAMCINOLONE ACETONIDE SUSP 40 MG/ML VIAL (J3301) As Ordered ONE; -diazePAM 5 MG TAB As Ordered ONE
[2019-08-17 16:02] LABS: BASO % 0.7 % (0.0-1.0); EOS # 0.2 10^3/uL (0.0-0.5); EOS % 3.6 % (0.0-3.0); HEMATOCRIT 44.7 % (36.0-47.0); HEMOGLOBIN 14.3 g/dl (12.0-15.5); LYMPH # 1.8 10^3/uL (1.5-5.0); LYMPH % 40.1 % (24.0-44.0); MEAN CORPUSCULAR HEMOGLOBIN 28.8 pg (27.0-33.0); MEAN CORPUSCULAR VOLUME 89.9 fl (80.0-96.0); MONO # 0.3 10^3/uL (0.0-0.8); MONO % 7.3 % (0.0-5.0); NEUTROPHILS # 2.1 10^3/uL (1.5-8.5); NEUTROPHILS % 48.3 % (36.0-66.0); PLATELET COUNT, AUTOMATED 218 10^3/uL (150-450); RED BLOOD COUNT 4.97 10^6/uL (4.00-5.40); WHITE BLOOD COUNT 4.4 10^3/uL (4.0-10.0)
[2019-08-17 16:29] LABS: C REACTIVE PROTEIN QUANTITATIV < 0.30 MG/DL (0.00-0.30); RHEUMATOID FACTOR QUANT < 10.0 IU/ML (<15.0)
[2019-08-17 16:42] LABS: ERYTHROCYTE SEDIMENTATION RATE 15 mm/hr (0-20); FOLATE 17.1 NG/ML (>5.4); VITAMIN B12 LEVEL 407 PG/ML (247-911)
[2019-08-20 00:07] LABS: ANTINUCLEAR ANTIBODIES DIRECT Negative (Negative); CYCLIC CITRULLINATED PEPTIDE 7 units (0-19)
== END ==
LOC: M LABNEURO 11:44
PROVIDERS: ATTEND Family Medicine
DX: M79.81 Nontraumatic hematoma of soft tissue (principal); M25.50 Pain in unspecified joint

== ENCOUNTER → 2019-08-23 | Outpatient (CLI) | payer BC ==
--- NOTE | 2019-09-07 00:56 | ECWPNPC ---
PATIENT NAME: JOSE F MENDEZ : 1975 GENDER: FEMALE VISIT DATE: 08/23/2019 DISCHARGE DATE: 08/23/19 1232 VISIT LOCKED DATE TIME: PHYSICIAN: NELLI EISENBERG RESOURCE: NELLI EISENBERG REASON FOR APPOINTMENT 1. POST PROC-FACIAL HISTORY OF PRESENT ILLNESS HISTORY OF PRESENT ILLNESS: HERE FOR POST PROCEDURE F/U.HAD LEFT SUPRAORBITAL MAXILLARY NERVE BLOCK ON 05/04/19 AND BILAT. CERVICAL THERAPEUTIC FACET BLOCK ON 04/29/19.RECENTLY NOTICED AN INDENTION/SLIGHT SMALL CIRCULAR INDENTATION ABOVE LEFT EYEBROW WHERE SHE HAD THE LEFT SUPRAORBITAL INJECTION.THIS INDENTATION WAS JUST NOTICED OVER THE PAST FEW WEEKS.SHE HAS NOT RECIEVED ANY RELIEF WITH HEADACHES OR CHRONIC PAIN WITH INJECTIONS.DENIES RECENT FEVER,ILLNESS OR INJURY.RATING NECK,UPPER BACK AND FRONTAL HEAD PAIN 1-9/10 VAS. PAIN THE PATIENT DESCRIBES THE PAIN... FALL RISK SCREENING: SCREENING :NO FALLS REPORTED IN THE LAST YEAR CURRENT MEDICATIONS TAKING GABAPENTIN 600 MG TABLET 1 CAPSULE ORALLY THREE TIMES DAILY TAKING SPIRONOLACTONE 50 MG TABLET 1 TABLET ORALLY DAILY TAKING LORATADINE 10 MG TABLET 1 TABLET ORALLY ONCE A DAY TAKING RIZATRIPTAN BENZOATE 5 MG TABLET 1 TABLET NEEDED ONE TIME ORALLY ONCE A DAY TAKING BIOTIN MAXIMUM STRENGTH 5000 MCG CAPSULE 1 CAPSULE ORALLY ONCE A DAY TAKING VITAMIN D-3 5000 UNIT TABLET 1 TAB ORALLY DAILY TAKING FLONASE 50 MCG/DOSE INHALER 1 SPRAY IN EACH NOSTRIL NASALLY TWICE A DAY TAKING IMIPRAMINE HCL 10 MG TABLET 1 TABLET ORALLY BID NOT-TAKING EFFEXOR 150 MGS ORALLY DAILY NOT-TAKING TIZANIDINE HCL 4 MG TABLET 1 TABLET NEEDED ORALLY THREE TIMES A DAY NOT-TAKING LORAZEPAM 0.5 MG TABLET 1 TABLET NEEDED ORALLY ONCE A DAY NOT-TAKING TRETINOIN 0.025 % CREAM 1 APPLICATION TO AFFECTED AREA IN THE EVENING TO FACE EXTERNALLY ONCE A DAY NOT-TAKING CYMBALTA 30 MG CAPSULE DELAYED RELEASE PARTICLES 1 CAPSULE ORALLY BID MEDICATION LIST REVIEWED AND RECONCILED WITH THE PATIENT PAST MEDICAL HISTORY CHRONIC MIGRANES CHRONIC NECK PAIN 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 SOCIAL HISTORY GENERAL: TOBACCO USE ARE YOU A:FORMER SMOKER HOW LONG HAS IT BEEN SINCE YOU LAST SMOKED?> 10 YEARS EDUCATION LEVEL OF EDUCATION:[employer] DIET: REGULAR. LANGUAGE LANGUAGES SPOKEN:SPANISH DOMESTIC VIOLENCE DO YOU FEEL SAFE IN YOUR ENVIRONMENT?YES RECREATIONAL DRUG USE DRUG USE?NO EXERCISE: NO REGULAR EXERCISE. LEARNING BARRIERS / SPECIAL NEEDS BARRIERS TO LEARNING?NO HEARING IMPAIRED?NO VISION IMPAIRED?YES COGNITIVELY IMPAIRED?NO :CORRECTIVE LENSES READINESS TO LEARN?YES LEARNING PREFERENCES?NO LEARNING CAPABILITIES PRESENT?YES EMOTIONAL BARRIERS?NO SPECIAL DEVICES?NO DATA ENTRY ANALYST NEEDED?NO PAIN CLINIC PFS, CLERGY, PUBLIC HEALTH REFERRALS HAS THE PATIENT BEEN EDUCATED REGARDING HIS/HER PLAN OF CARE?YES HAS THE PATIENT BEEN EDUCATED REGARDING PAIN, THE RISK FOR PAIN, THE IMPORTANCE OF EFFECTIVE PAIN MANAGEMENT, AND THE PAIN ASSESSMENT PROCESS?YES LATEX QUESTIONNAIRE LATEX ALLERGY : HAVE YOU EVER DEVELOPED ANY TYPE OF REACTION AFTER HANDLING LATEX PRODUCTS SUCH RUBBER GLOVES, CONDOMS, DIAPHRAGMS, BALLOONS, SOCKS, OR UNDERWEAR?NO LATEX ALLERGY : HAVE YOU EVER DEVELOPED ANY TYPE OF REACTION DURING OR AFTER DENTAL APPOINTMENT, VAGINAL/RECTAL EXAMINATION, SURGICAL PROCEDURE, OR ANY OTHER EXPOSURE?NO DATE ASKED : 04/25/2019 LATEX RISK : HAVE YOU EVER HAD ANY DIFFICULTY BREATHING OR HIVES AFTER EATING OR HANDLING ANY FRUITS, OR VEGETABLES; SUCH KIWI, BANANAS, STONE FRUITS, OR CHESTNUTSNO LATEX RISK : DO YOU HAVE A PREVIOUS PERSONAL HISTORY OF MORE THAN NINE SURGERIES, SPINA BIFIDA, OR REPEATED CATHERIZATIONS? NO LATEX RISK : ARE YOU FREQUENTLY EXPOSED TO LATEX PRODUCTS IN YOUR OCCUPATION?NO CAFFEINE CAFFEINE USE?NO ADVANCE DIRECTIVE ADVANCE DIRECTIVE DISCUSSED WITH PATIENT:YES 04/25/19 PT DOES NOT HAVE ANY ADVANCED DIRECTIVES AND SHE DECLINES INFORMATION ON HCP AT THIS TIME. 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 REVIEWED WITH PT 08/20/18 0935 BVREVIEWED WITH PT 09/14/18 1601 BVREVIEWED WITH PATIENT 08/23/19 1201 NLJ. HOSPITALIZATION/MAJOR DIAGNOSTIC PROCEDURE SURGERIES CHILD REVIEW OF SYSTEMS REVIEWED BY: PROVIDER: NELLI DRAKE . CONSTITUTIONAL: ANY CHANGE IN YOUR MEDICAL CONDITION? NO . CHILLS NO . FEVER NO . INFECTION: DO YOU HAVE NEW INFECTIONS? NO . DO YOU HAVE HISTORY OF MRSA? NO . MUSCULOSKELETAL: ANY NEW PATTERNS OF PAIN OR NUMBNESS? YES- STATES THAT AFTER SUPRAORBITAL MAXILLARY INJECTION OF LEFT SIDE ON 05/04/19 SHE NOTICED A LINE OVER LEFT EYEBROW, NOW STATES SHE HAS AN IDENTATION ABOVE AND INOT LEFT EYEBROW, DENIES ANY FACIAL DROOP, NUMBNESS, TINGLING OR PAIN AT AREA . GASTROENTEROLOGY: ANY NEW CHANGE IN BOWEL CONTROL? NO . GENITOURINARY: ANY NEW CHANGE IN BLADDER CONTROL? NO . IS THERE A CHANCE YOU COULD BE ? NO . HEMATOLOGY/LYMPH: DO YOU TAKE ANY BLOOD THINNERS? (FOR EXAMPLE- COUMADIN, PLAVIX, AGGRENOX, PLATEL, PRADAXA, OR XARELTO) NO . WHEN WAS YOUR LAST DOSE? DATE: TIME: . NEUROLOGY: HAVE YOU FALLEN IN THE PAST 12 MONTHS? NO- STATES NO FALLS SINCE LAST VISIT . ANY NEW EXTREMITY NUMBNESS OR WEAKNESS? NO . CARDIOLOGY: DO YOU HAVE A PACEMAKER OR DEFIBRILLATOR? NO . RESPIRATORY: HAVE YOU BEEN SICK IN THE PAST WEEK? NO . FEVER NO . FLU LIKE SYMPTOMS? NO . COUGH NO . INTEGUMENTARY: DO YOU HAVE ANY RASHES OR OPEN SORES? NO . ALLERGIC/IMMUNO: ARE YOU ALLERGIC TO IV DYE? NO . ANY NEW ALLERGIES? NO . PSYCHIATRIC: DO YOU HAVE THOUGHTS OF HURTING YOURSELF OR SOMEONE ELSE? NO . ARE YOU ABUSED, NEGLECTED, OR IN AN UNSAFE ENVIRONMENT? NO . ENDOCRINOLOGY: ARE YOU DIABETIC? NO . OTHER: DO YOU NEED ANY PRESCRIPTIONS? NO . IF YES, PLEASE LIST: ____ . ANY NEW PROBLEMS WITH YOUR MEDICATIONS? NO . WHEN DID YOU LAST EAT? ____ . WHEN DID YOU LAST DRINK? ____ . WHAT DID YOU LAST DRINK? ____ . NAME OF PERSON DRIVING YOU HOME? ____ . DO YOU HAVE ANY OTHER QUESTIONS OR CONCERNS YES- SEE NOTES FROM TELEPHONE CONVERSATION, STATES SHE WILL BE GETTING THE FLU SHOT IN SEPTEMBER . VITAL SIGNS WT 214.4 LBS, HT 61 IN, BMI 40.51 INDEX, BP 162/88 MM HG, HR 100 /MIN, RR 16 /MIN, TEMP 97.0 F, OXYGEN SAT % 100%, SAFE IN ENV? (Y/N) YES, NA INITIALS ME 11:44, REVIEWED BY: KIERAN. EXAMINATION GENERAL EXAMINATION: GENERAL LERT,NO AUTE DISTRESS. HEENT: HEAD:LEFT EYE ABOVE EYEBROW 2 -3 MM AREA OF CIRCULAR INDENTATION.NO REDNESS.NON TENDER. LUNGS: LUNG SOUNDS ARE CLEAR. HEART: HEART RATE REGULAR. ASSESSMENTS TRIGEMINAL NEURALGIA - G50.0 (PRIMARY) TREATMENT TRIGEMINAL NEURALGIA NOTES: NEEDS F/U WITH DR TEMPLETON. PROCEDURE CODES FA211 ESTABILISHED PATIENT [facility] FACILITY CHARGE DISPOSITION & COMMUNICATION FOLLOW UP F/U W DR TEMPLETON PAGE (REASON: LEFT SUPRA ORBITAL INDENTATION POST LEFT SUPRAORBITAL STEROID INJECTION) ELECTRONICALLY SIGNED BY VIDAL MUNGUIA ON 09/06/2019 AT 02:47 PM EST DISCLAIMER : THIS IS A VISIT SUMMARY EXTRACTED FROM THE [employer] CHART. IT IS NOT A COPY OF THE [employer] PROGRESS NOTE. MTDLauro
== END ==
LOC: M PAIN 11:30
PROVIDERS: ATTEND Nurse Practitioner Family
DX: G50.0 Trigeminal neuralgia (principal); G43.909 Migraine, unspecified, not intractable, without status migrainosus; M79.10 Myalgia, unspecified site; Z87.891 Personal history of nicotine dependence; Z88.8 Allergy status to other drugs, medicaments and biological substances; E66.01 Morbid (severe) obesity due to excess calories; Z68.41 Body mass index [BMI] 40.0-44.9, adult; Z79.899 Other long term (current) drug therapy

== ENCOUNTER → 2019-09-16 | Outpatient (CLI) | payer BC ==
--- NOTE | 2019-09-27 03:07 | ECWPNPC ---
PATIENT NAME: JOSE F MENDEZ : 1975 GENDER: FEMALE VISIT DATE: 09/16/2019 DISCHARGE DATE: 09/16/19 1220 VISIT LOCKED DATE TIME: PHYSICIAN: GALILEO TEMPLETON MD RESOURCE: GALILEO TEMPLETON MD REASON FOR APPOINTMENT 1. F/U PER MARTA SEE DR Howard HISTORY OF PRESENT ILLNESS HISTORY OF PRESENT ILLNESS: PAIN THE PATIENT DESCRIBES THE PAIN... 44 YEAR OLD FEMALE PATIENT WITH A HISTORY OF CHRONIC MIGRAINES AND TRIGEMINAL PAIN. THE PATIENT DESCRIBES THE PAIN ACHING, SORE, TENDER, SHARP, AND INTERMITTENT WITH A PAIN SCORE OF 2-9/10 DEPENDING ON PHYSICAL ACTIVITY. THE PATIENT STATES SHE HAS BEEN SUFFERING FROM HER PAIN FOR APPROXIMATELY 10 YEARS THAT BEGAN AFTER HER SECOND CHILD . THE PATIENT SAYS AIMOVIG IS HELPING TO DECREASE THE FREQUENCY OF MIGRAINES THAT IS NOW AROUND 1-2 PER WEEK AND GABAPENTIN IS HELPING WITH HER LEFT EYE TRIGEMINAL NEURALGIA, HOWEVER HER FACIAL PAIN CONTINUE TO PERSIST. THE PATIENT RECEIVED A TRIGGER POINT INJECTION, LEFT SUPRAORBITAL NERVE BLOCK, AND BILATERAL CERVICAL FACET BLOCK IN THE PAST, BUT THEY DID NOT OFFER MUCH RELIEF FOR HER. THE PATIENT SAYS AFTER HER SUPRAORBITAL MAXILLARY NERVE BLOCK DONE ON 05/04/2019, SHE DEVELOPED DISCOLORATION AND DECREASE OF THE SOFT TISSUE OVER HER LEFT EYE LID. PATIENT DENIES UNEXPLAINABLE WEIGHT LOSS, FEVER, CHILLS, NEW CHANGES ON HER URINARY OR BOWEL CONTROL. FALL RISK SCREENING: SCREENING :NO FALLS REPORTED IN THE LAST YEAR CURRENT MEDICATIONS TAKING GABAPENTIN 600 MG TABLET 1 CAPSULE ORALLY THREE TIMES DAILY TAKING SPIRONOLACTONE 50 MG TABLET 1 TABLET ORALLY DAILY TAKING LORATADINE 10 MG TABLET 1 TABLET ORALLY ONCE A DAY TAKING RIZATRIPTAN BENZOATE 5 MG TABLET 1 TABLET NEEDED ONE TIME ORALLY ONCE A DAY TAKING BIOTIN MAXIMUM STRENGTH 5000 MCG CAPSULE 1 CAPSULE ORALLY ONCE A DAY TAKING VITAMIN D-3 5000 UNIT TABLET 1 TAB ORALLY DAILY TAKING FLONASE 50 MCG/DOSE INHALER 1 SPRAY IN EACH NOSTRIL NASALLY TWICE A DAY NOT-TAKING IMIPRAMINE HCL 10 MG TABLET 1 TABLET ORALLY BID NOT-TAKING EFFEXOR 150 MGS ORALLY DAILY NOT-TAKING TIZANIDINE HCL 4 MG TABLET 1 TABLET NEEDED ORALLY THREE TIMES A DAY NOT-TAKING LORAZEPAM 0.5 MG TABLET 1 TABLET NEEDED ORALLY ONCE A DAY NOT-TAKING TRETINOIN 0.025 % CREAM 1 APPLICATION TO AFFECTED AREA IN THE EVENING TO FACE EXTERNALLY ONCE A DAY NOT-TAKING CYMBALTA 30 MG CAPSULE DELAYED RELEASE PARTICLES 1 CAPSULE ORALLY BID MEDICATION LIST REVIEWED AND RECONCILED WITH THE PATIENT PAST MEDICAL HISTORY CHRONIC MIGRANES CHRONIC NECK PAIN 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 SOCIAL HISTORY GENERAL: TOBACCO USE ARE YOU A:FORMER SMOKER HOW LONG HAS IT BEEN SINCE YOU LAST SMOKED?> 10 YEARS EDUCATION LEVEL OF EDUCATION:[employer] DIET: REGULAR. LANGUAGE LANGUAGES SPOKEN:ARMENIAN DOMESTIC VIOLENCE DO YOU FEEL SAFE IN YOUR ENVIRONMENT?YES RECREATIONAL DRUG USE DRUG USE?NO EXERCISE: NO REGULAR EXERCISE. LEARNING BARRIERS / SPECIAL NEEDS BARRIERS TO LEARNING?NO HEARING IMPAIRED?NO VISION IMPAIRED?YES COGNITIVELY IMPAIRED?NO :CORRECTIVE LENSES READINESS TO LEARN?YES LEARNING PREFERENCES?NO LEARNING CAPABILITIES PRESENT?YES EMOTIONAL BARRIERS?NO SPECIAL DEVICES?NO COLLAR BASTER JUMPBASTING NEEDED?NO PAIN CLINIC PFS, CLERGY, PUBLIC HEALTH REFERRALS HAS THE PATIENT BEEN EDUCATED REGARDING HIS/HER PLAN OF CARE?YES HAS THE PATIENT BEEN EDUCATED REGARDING PAIN, THE RISK FOR PAIN, THE IMPORTANCE OF EFFECTIVE PAIN MANAGEMENT, AND THE PAIN ASSESSMENT PROCESS?YES LATEX QUESTIONNAIRE LATEX ALLERGY : HAVE YOU EVER DEVELOPED ANY TYPE OF REACTION AFTER HANDLING LATEX PRODUCTS SUCH RUBBER GLOVES, CONDOMS, DIAPHRAGMS, BALLOONS, SOCKS, OR UNDERWEAR?NO LATEX ALLERGY : HAVE YOU EVER DEVELOPED ANY TYPE OF REACTION DURING OR AFTER DENTAL APPOINTMENT, VAGINAL/RECTAL EXAMINATION, SURGICAL PROCEDURE, OR ANY OTHER EXPOSURE?NO DATE ASKED : 04/25/2019 LATEX RISK : HAVE YOU EVER HAD ANY DIFFICULTY BREATHING OR HIVES AFTER EATING OR HANDLING ANY FRUITS, OR VEGETABLES; SUCH KIWI, BANANAS, STONE FRUITS, OR CHESTNUTSNO LATEX RISK : DO YOU HAVE A PREVIOUS PERSONAL HISTORY OF MORE THAN NINE SURGERIES, SPINA BIFIDA, OR REPEATED CATHERIZATIONS? NO LATEX RISK : ARE YOU FREQUENTLY EXPOSED TO LATEX PRODUCTS IN YOUR OCCUPATION?NO CAFFEINE CAFFEINE USE?NO ADVANCE DIRECTIVE ADVANCE DIRECTIVE DISCUSSED WITH PATIENT:YES PT DOES NOT HAVE ANY ADVANCED DIRECTIVES AND SHE DECLINES INFORMATION ON HCP AT THIS TIME. 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 REVIEWED WITH PT 08/20/18 0935 BVREVIEWED WITH PT 09/14/18 1601 BVREVIEWED WITH PATIENT 08/23/19 1201 NLJ. HOSPITALIZATION/MAJOR DIAGNOSTIC PROCEDURE SURGERIES CHILD REVIEW OF SYSTEMS REVIEWED BY: PROVIDER: . CONSTITUTIONAL: ANY CHANGE IN YOUR MEDICAL CONDITION? NO . CHILLS NO . FEVER NO . INFECTION: DO YOU HAVE NEW INFECTIONS? NO . DO YOU HAVE HISTORY OF MRSA? NO . MUSCULOSKELETAL: ANY NEW PATTERNS OF PAIN OR NUMBNESS? NO . GASTROENTEROLOGY: ANY NEW CHANGE IN BOWEL CONTROL? NO . GENITOURINARY: ANY NEW CHANGE IN BLADDER CONTROL? NO . IS THERE A CHANCE YOU COULD BE ? NO . HEMATOLOGY/LYMPH: DO YOU TAKE ANY BLOOD THINNERS? (FOR EXAMPLE- COUMADIN, PLAVIX, AGGRENOX, PLATEL, PRADAXA, OR XARELTO) NO . WHEN WAS YOUR LAST DOSE? DATE: TIME: . NEUROLOGY: HAVE YOU FALLEN IN THE PAST 12 MONTHS? YES . ANY NEW EXTREMITY NUMBNESS OR WEAKNESS? NO . CARDIOLOGY: DO YOU HAVE A PACEMAKER OR DEFIBRILLATOR? NO . RESPIRATORY: HAVE YOU BEEN SICK IN THE PAST WEEK? NO . FEVER NO . FLU LIKE SYMPTOMS? NO . COUGH NO . INTEGUMENTARY: DO YOU HAVE ANY RASHES OR OPEN SORES? NO . ALLERGIC/IMMUNO: ARE YOU ALLERGIC TO IV DYE? NO . ANY NEW ALLERGIES? NO . PSYCHIATRIC: DO YOU HAVE THOUGHTS OF HURTING YOURSELF OR SOMEONE ELSE? NO . ARE YOU ABUSED, NEGLECTED, OR IN AN UNSAFE ENVIRONMENT? NO . ENDOCRINOLOGY: ARE YOU DIABETIC? NO . OTHER: DO YOU NEED ANY PRESCRIPTIONS? NO . IF YES, PLEASE LIST: ____ . ANY NEW PROBLEMS WITH YOUR MEDICATIONS? NO . WHEN DID YOU LAST EAT? ____ . WHEN DID YOU LAST DRINK? ____ . WHAT DID YOU LAST DRINK? ____ . NAME OF PERSON DRIVING YOU HOME? ____ . DO YOU HAVE ANY OTHER QUESTIONS OR CONCERNS NO . VITAL SIGNS WT 213.8 LBS, HT 61 IN, BMI 40.39 INDEX, BP 152/72 MM HG, HR 89 /MIN, RR 16 /MIN, TEMP 97.3 F, OXYGEN SAT % 100%, SAFE IN ENV? (Y/N) YES, NA INITIALS AW 1112, REVIEWED BY: ALISSON. EXAMINATION GENERAL EXAMINATION: PATIENT IS ALERT O X 3 AND COOPERATIVE. DECREASE IN DISCOLORATION AND SOFT TISSUE ABOVE, MEDIAL ASPECT OF PATIENT'S LEFT EYELID APPROXIMATELY 1 CM DIAMETER. VISUAL MONSIVAIS NORMAL. CRANIAL NERVES GROSSLY NORMAL. ASSESSMENTS CHRONIC MIGRAINE - G43.709 (PRIMARY) TRIGEMINAL NEURALGIA - G50.0 DISCOLORATION AND SOFT TISSUE LOSS OF LEFT EYELID AFTER SUPRAORBITAL MAXILLARY NERVE BLOCK INJECTION. TREATMENT CHRONIC MIGRAINE CLINICAL NOTES: WE DISCUSSED SEVERAL ISSUES WITH MS. MENDEZ'S PAIN MANAGEMENT CASE. I DISCUSSED WITH THE PATIENT ABOUT THREE DIFFERENT OPTIONS WE CAN PROCEED WITH IN THE FUTURE. THE FIRST BEING THE OPTION OF A LEFT CERVICAL FACET BLOCK, WHICH MAY HELP BETTER BY GOING THROUGH THE SIDE INSTEAD OF FROM A POSTERIOR APPROACH. THE PATIENT REPORTS AFTER HER PREVIOUS BILATERAL CERVICAL FACET BLOCK, SHE EXPERIENCED EXACERBATION OF HER PAIN THAT BROUGHT 5 DAYS OF SEVERE PAIN. THE SECOND OPTION WE DISCUSSED WOULD BE FOR LEFT DIAGNOSTIC FACET BLOCKS TO CONSIDER A RADIOFREQUENCY ABLATION. LASTLY, THE THIRD OPTION WOULD BE TO USE A LOCAL ANESTHETIC ONLY AT THE PERIPHERAL NERVES. I AGREED WITH MS. MENDEZ THAT SHE WILL CALL NEEDED TO BOOK ANY FACIAL INJECTION WITH LOCAL ANESTHETIC ONLY. I WILL REFER THE PATIENT TO [facility]'S PLASTIC SURGEON FOR A CONSULT AND TO DISCUSS OPTIONS THAT MIGHT HELP WITH THE INDENTATION AND DISCOLORATION OF HER LEFT SUPERIOR EYELID. I WILL ALSO REFER THE PATIENT TO [facility] PALLIATIVE CARE STAR PROGRAM TO CONSIDER MEDICATION MANAGEMENT AND TO CONSIDER MEDICAL MARIJUANA FOR TRIGEMINAL NEURALGIA. THE PATIENT WILL FOLLOW UP AT OUR FACILITY IN SEVERAL WEEKS. INSTRUCTIONS WERE GIVEN, QUESTIONS WERE ANSWERED, PATIENT REPORTS UNDERSTANDING AND AGREES WITH THE PLAN. I, AMANDA MANUEL, DOCUMENTED THE ABOVE INFORMATION ACTING A SCRIBE FOR DR. TEMPLETON. I HAVE REVIEWED THE ABOVE DOCUMENT, WRITTEN BY AMANDA EARL AND I VERIFY THAT IT IS ACCURATE. . PROCEDURE CODES FA211 ESTABILISHED PATIENT [facility] FACILITY CHARGE [id number] CURRENT MEDS W/DOSAGES DOCUMENTED G8730 PAIN ASSESS POS TOOL F/U PLAN DOC DISPOSITION & COMMUNICATION FOLLOW UP REASON: F/UP WITH [facility]CH[employer], CALL NEEDED FOR 3 DIFFERENT OPTIONS/REFERRING TO PLASTIC SURGEON & PALLIATIVE CARE ELECTRONICALLY SIGNED BY GALILEO TEMPLETON MD, MD ON 09/26/2019 AT 12:15 PM EST DISCLAIMER : THIS IS A VISIT SUMMARY EXTRACTED FROM THE [employer] CHART. IT IS NOT A COPY OF THE [employer] PROGRESS NOTE. MTDD
== END ==
LOC: M PAIN 11:00
PROVIDERS: ATTEND Anesthesiology
DX: G43.709 Chronic migraine without aura, not intractable, without status migrainosus (principal); G50.0 Trigeminal neuralgia; G89.29 Other chronic pain; M79.10 Myalgia, unspecified site; Z87.891 Personal history of nicotine dependence; Z88.8 Allergy status to other drugs, medicaments and biological substances; E66.01 Morbid (severe) obesity due to excess calories; Z68.41 Body mass index [BMI] 40.0-44.9, adult; Z79.899 Other long term (current) drug therapy

== ENCOUNTER → 2019-09-23 | Outpatient (REF) | payer BC ==
[2019-09-23 13:41] LABS: THYROID STIMULATING HORMONE 1.64 uIU/ML (0.358-3.740)
== END ==
LOC: M LABNEURO 08:29
PROVIDERS: ATTEND Family Medicine
DX: M25.50 Pain in unspecified joint (principal); E66.9 Obesity, unspecified

== ENCOUNTER → 2020-03-02 | Outpatient (REF) | payer BC | LOC: M LAB REF 10:28 | PROVIDERS: ATTEND Plastic Surgery Surgery of the Hand | DX: L98.8 Other specified disorders of the skin and subcutaneous tissue (principal) ==

== ENCOUNTER → 2021-05-24 | Outpatient (CLI) | payer BC ==
[2021-05-24 16:17] LABS: BASO % 0.9 % (0.0-1.0); EOS # 0.1 10^3/uL (0.0-0.5); EOS % 3.3 % (0.0-3.0); HEMATOCRIT 45.6 % (36.0-47.0); HEMOGLOBIN 14.9 g/dl (12.0-15.5); LYMPH # 1.8 10^3/uL (1.5-5.0); LYMPH % 41.5 % (24.0-44.0); MEAN CORPUSCULAR HEMOGLOBIN 28.8 pg (27.0-33.0); MEAN CORPUSCULAR HGB CONC 32.7 g/dl (32.0-36.5); MEAN CORPUSCULAR VOLUME 88.2 fl (80.0-96.0); MONO # 0.3 10^3/uL (0.0-0.8); NEUTROPHILS % 47.3 % (36.0-66.0); PLATELET COUNT, AUTOMATED 239 10^3/uL (150-450); RED BLOOD COUNT 5.17 10^6/uL (4.00-5.40); WHITE BLOOD COUNT 4.3 10^3/uL (4.0-10.0)
[2021-05-24 16:56] LABS: ALBUMIN 3.6 GM/DL (3.2-5.2); ALT/SGPT 26 U/L (12-78); BILIRUBIN,TOTAL 0.4 MG/DL (0.2-1.0); BLOOD UREA NITROGEN 8 MG/DL (7-18); CALCIUM LEVEL 8.9 MG/DL (8.5-10.1); CARBON DIOXIDE LEVEL 31 MEQ/L (21-32); CHLORIDE LEVEL 104 MEQ/L (98-107); CHOLESTEROL LEVEL 275 MG/DL (<200); CREATININE FOR GFR 0.86 MG/DL (0.55-1.30); FREE T4 0.99 NG/DL (0.76-1.46); GLOMERULAR FILTRATION RATE > 60.0 (>58); GLUCOSE, FASTING 96 MG/DL (70-100); HDL CHOLESTEROL 50 MG/DL (>40); LDL CHOLESTEROL 189 MG/DL (<100); NON-HDL-C 225 MG/DL; POTASSIUM SERUM 4.4 MEQ/L (3.5-5.1); SODIUM LEVEL 140 MEQ/L (136-145); TOTAL PROTEIN 6.6 GM/DL (6.4-8.2); TRIGLYCERIDES LEVEL 182 MG/DL (<150)
== END ==
LOC: M WUC 09:32
PROVIDERS: ATTEND Family Medicine
DX: Z13.220 Encounter for screening for lipoid disorders (principal); Z13.29 Encounter for screening for other suspected endocrine disorder; Z13.0 Encounter for screening for diseases of the blood and blood-forming organs and certain disorders involving the immune mechanism

== ENCOUNTER → 2021-06-21 | Outpatient (CLI) | payer BC ==
[2021-06-21 16:13] LABS: ALBUMIN 3.5 GM/DL (3.2-5.2); ALT/SGPT 24 U/L (12-78); BILIRUBIN,TOTAL 0.5 MG/DL (0.2-1.0); BLOOD UREA NITROGEN 8 MG/DL (7-18); CALCIUM LEVEL 9.2 MG/DL (8.5-10.1); CARBON DIOXIDE LEVEL 29 MEQ/L (21-32); CHLORIDE LEVEL 105 MEQ/L (98-107); CHOLESTEROL LEVEL 163 MG/DL (<200); CHOLESTEROL RISK RATIO 2.859 (<5); CREATININE FOR GFR 0.76 MG/DL (0.55-1.30); GLOMERULAR FILTRATION RATE > 60.0 (>58); GLUCOSE, FASTING 80 MG/DL (70-100); HDL CHOLESTEROL 57 MG/DL (>40); LDL CHOLESTEROL 84 MG/DL (<100); NON-HDL-C 106 MG/DL; POTASSIUM SERUM 4.2 MEQ/L (3.5-5.1); SODIUM LEVEL 141 MEQ/L (136-145); TOTAL PROTEIN 6.5 GM/DL (6.4-8.2); TRIGLYCERIDES LEVEL 112 MG/DL (<150)
== END ==
LOC: M WUC 11:09
PROVIDERS: ATTEND Family Medicine
DX: E78.00 Pure hypercholesterolemia, unspecified (principal)

== ENCOUNTER 2021-12-13 06:58 | Emergency (ER) | payer BC, OTHER ==
[~2021-12-13] VITALS: Ht 154.9 cm; Wt 100.0 kg
[2021-12-13] MEDS ORDERED: GABA600T4 PO (07:27)
[2021-12-13] MEDS ORDERED: CRES10TA PO (07:31)
[2021-12-13] MEDS ORDERED: MAXA10TA15 PO (07:31)
[2021-12-13] MEDS ORDERED: SPIR50TA4 PO (07:31)
[2021-12-13] MEDS ORDERED: LORA-674 PO (07:31)
[2021-12-13] MEDS ORDERED: AIMO70IN2 SQ (07:31)
[2021-12-13 07:41] VITALS: BP 142/86
[2021-12-13] MEDS ORDERED: ACETAMINOPHEN 500 MG TAB PO ONE (09:25)
== END 2021-12-13 10:48 | disposition home or self-care (01) ==
LOC: EDBD 06:58 → M ED 06:58
DX: S20.311A Abrasion of right front wall of thorax, initial encounter (principal); S63.601A Unspecified sprain of right thumb, initial encounter; V49.49XA Driver injured in collision with other motor vehicles in traffic accident, initial encounter; Y92.410 Unspecified street and highway as the place of occurrence of the external cause; M79.2 Neuralgia and neuritis, unspecified; Z79.899 Other long term (current) drug therapy; Z88.8 Allergy status to other drugs, medicaments and biological substances; F17.210 Nicotine dependence, cigarettes, uncomplicated

== ENCOUNTER → 2021-12-27 | Outpatient (REF) | payer BC ==
[~2021-12-27] MED LIST changes: +AIMO70IN2 SQ; +CRES10TA PO; +GABA600T4 PO; +LORA-674 PO; +MAXA10TA15 PO; +SPIR50TA4 PO
[2021-12-27 12:49] LABS: MAGNESIUM LEVEL 2.3 MG/DL (1.8-2.4); PHOSPHORUS LEVEL 2.8 MG/DL (2.5-4.9)
[2021-12-27 13:00] LABS: TOTAL 25(OH) VITAMIN D 26.2 NG/ML (30.0-100.0)
[2021-12-28 19:07] LABS: ANA (HEP2) Negative (.); SSA SJOGRENS A <0.2 AI (0.0-0.9); SSB SJOGRENS B <0.2 AI (0.0-0.9)
== END ==
LOC: M SFHCRHEU 10:44
PROVIDERS: ATTEND Internal Medicine
DX: H04.129 Dry eye syndrome of unspecified lacrimal gland (principal); M79.10 Myalgia, unspecified site

== ENCOUNTER → 2022-01-02 | Outpatient (CLI) | payer BC | LOC: M SOG 09:11 | PROVIDERS: ATTEND Orthopaedic Surgery Hand Surgery | DX: S60.011A Contusion of right thumb without damage to nail, initial encounter (principal); W18.30XA Fall on same level, unspecified, initial encounter; Y92.009 Unspecified place in unspecified non-institutional (private) residence as the place of occurrence of the external cause ==

== ENCOUNTER → 2022-01-23 | Outpatient (CLI) | payer OTHER | LOC: M PLAIMG 07:49 | PROVIDERS: ATTEND Orthopaedic Surgery Hand Surgery | DX: S60.011A Contusion of right thumb without damage to nail, initial encounter (principal); W18.30XA Fall on same level, unspecified, initial encounter; Y92.009 Unspecified place in unspecified non-institutional (private) residence as the place of occurrence of the external cause ==

== ENCOUNTER → 2022-09-03 | Outpatient (CLI) | payer BC ==
[~2022-09-03] MED LIST changes: +FLUTISP INH
[2022-09-03 17:31] LABS: BASO % 0.6 % (0.0-1.0); EOS # 0.1 10^3/uL (0.0-0.5); EOS % 2.2 % (0.0-3.0); HEMATOCRIT 43.7 % (36.0-47.0); HEMOGLOBIN 13.9 g/dl (12.0-15.5); LYMPH # 1.9 10^3/uL (1.5-5.0); LYMPH % 37.5 % (24.0-44.0); MEAN CORPUSCULAR HEMOGLOBIN 28.9 pg (27.0-33.0); MEAN CORPUSCULAR HGB CONC 31.8 g/dl (32.0-36.5); MEAN CORPUSCULAR VOLUME 90.9 fl (80.0-96.0); MONO # 0.4 10^3/uL (0.0-0.8); MONO % 7.7 % (2.0-8.0); NEUTROPHILS # 2.6 10^3/uL (1.5-8.5); PLATELET COUNT, AUTOMATED 225 10^3/uL (150-450); RED BLOOD COUNT 4.81 10^6/uL (4.00-5.40); WHITE BLOOD COUNT 5.1 10^3/uL (4.0-10.0)
[2022-09-03 19:17] LABS: BLOOD UREA NITROGEN 11 MG/DL (7-18); CALCIUM LEVEL 9.3 MG/DL (8.5-10.1); CARBON DIOXIDE LEVEL 30 MEQ/L (21-32); CHLORIDE LEVEL 105 MEQ/L (98-107); CREATININE FOR GFR 0.88 MG/DL (0.55-1.30); GLOMERULAR FILTRATION RATE > 60.0 (>58); GLUCOSE, FASTING 104 MG/DL (70-100); SODIUM LEVEL 139 MEQ/L (136-145)
== END ==
LOC: M WUC 15:01
PROVIDERS: ATTEND Family Medicine
DX: Z01.818 Encounter for other preprocedural examination (principal)

== ENCOUNTER → 2022-09-10 | Outpatient (CLI) | payer BC | LOC: M LABSMTC 09:27 | PROVIDERS: ATTEND Anesthesiology | DX: Z01.812 Encounter for preprocedural laboratory examination (principal); Z11.52 Encounter for screening for COVID-19 ==

== ENCOUNTER 2022-09-11 12:26 | Day surgery (SDC) | payer BC ==
[~2022-09-11] VITALS: Ht 154.9 cm; Wt 99.8 kg
[~2022-09-11 12:26] MED LIST changes: +LIDOCAINE 2% 100MG/5ML SDV (FOR ANES.) As Ordered ONE; +MIDAZOLAM INJ 2MG/2ML VIAL (J2250 PER 1MG) As Ordered ONE; +ONDANSETRON 4MG 2ML VIAL As Ordered ONE; +ROCURONIUM BROMIDE 50 MG/5 ML VIAL As Ordered ONE; +ceFAZolin SOD 2 GM in IV 1 EA IV ONE; +dexameTHASONE 4 MG/ML 1ML VIAL (J1100 PER 1MG) As Ordered ONE; +fentaNYL 100 MCG/2 ML INJECTION As Ordered ONE; +propofoL 200 MG/20 ML VIAL As Ordered ONE
[2022-09-11] MEDS ORDERED: LR 1,000 ML IV SCH ×2 (13:30→15:50)
[2022-09-11] MEDS ORDERED: BUPIVACAINE/EPIN 0.25% 30 ML VIAL As Ordered ONE (13:44)
[2022-09-11 13:58] LABS: HCG, SERUM QUALITATIVE NEGATIVE (NEGATIVE)
[2022-09-11] MEDS ORDERED: ACETAMINOPHEN 1000MG 100ML IV BAG As Ordered ONE (14:16)
[2022-09-11] MEDS ORDERED: SUGAMMADEX SODIUM 500 MG/5 ML VIAL (BRIDION) As Ordered ONE (14:19)
[2022-09-11] MEDS ORDERED: fentaNYL 100 MCG/2 ML INJECTION As Ordered ONE (14:20)
[2022-09-11] MEDS ORDERED: ROCURONIUM BROMIDE 50 MG/5 ML VIAL As Ordered ONE (14:37)
[2022-09-11] MEDS ORDERED: KETAMINE HCL 200 MG/20 ML VIAL As Ordered ONE (14:39)
[2022-09-11] MEDS ORDERED: oxyCODONE 5MG TAB PO PRN (15:50)
[2022-09-11] MEDS ORDERED: fentaNYL 100 MCG/2 ML INJECTION IV PRN (15:50)
[2022-09-11] MEDS ORDERED: ONDANSETRON 4MG 2ML VIAL IV PRN (15:50)
[2022-09-11] MEDS: HYDROMORPHONE HCL 0.5 MG/ 0.5 ML SYRINGE (J1170 PER 1) IV PRN ×4 (15:59→16:19)
[2022-09-11] MEDS ORDERED: NORCO, ANEXSIA 5/325MG TABLET (HYDROcodone/ACETAMINOPHEN) PO PRN (16:20)
[2022-09-11] MEDS ORDERED: METOCLOPRAMIDE INJ 10MG/2ML VIAL (J2765 PER 1) IV ONE (16:40)
[2022-09-11] MEDS ORDERED: SIMETHICONE 80MG CHEW TAB PO STA (18:37)
[2022-09-11] MEDS ORDERED: PROMETHAZINE 25MG/ML 1ML VIAL IV STA (19:47)
[2022-09-11 20:55] VITALS: BP 136/76
== END 2022-09-11 20:55 | disposition home or self-care (01) ==
LOC: M SDC 12:26
PROVIDERS: ATTEND Surgery
DX: K43.2 Incisional hernia without obstruction or gangrene (principal); R10.33 Periumbilical pain; G43.909 Migraine, unspecified, not intractable, without status migrainosus; G50.0 Trigeminal neuralgia; Z88.8 Allergy status to other drugs, medicaments and biological substances; Z79.899 Other long term (current) drug therapy
CPT/HCPCS: 49654; 81025; 84703; C1781; J0131; J0690; J1100; J1170; J2250; J2405; J2550; J2765; J3010; S2900

== ENCOUNTER → 2023-02-02 | Outpatient (CLI) | payer BC ==
[~2023-02-02] MED LIST changes: +FLUT50SP17 INH; -FLUTISP INH; -LIDOCAINE 2% 100MG/5ML SDV (FOR ANES.) As Ordered ONE; -MIDAZOLAM INJ 2MG/2ML VIAL (J2250 PER 1MG) As Ordered ONE; -ONDANSETRON 4MG 2ML VIAL As Ordered ONE; -ROCURONIUM BROMIDE 50 MG/5 ML VIAL As Ordered ONE; -ceFAZolin SOD 2 GM in IV 1 EA IV ONE; -dexameTHASONE 4 MG/ML 1ML VIAL (J1100 PER 1MG) As Ordered ONE; -fentaNYL 100 MCG/2 ML INJECTION As Ordered ONE; -propofoL 200 MG/20 ML VIAL As Ordered ONE
[2023-02-02 17:46] LABS: BASO # 0.1 10^3/uL (0.0-0.2); BASO % 0.8 % (0.0-1.0); EOS # 0.2 10^3/uL (0.0-0.5); EOS % 2.5 % (0.0-3.0); HEMATOCRIT 42.2 % (36.0-47.0); HEMOGLOBIN 13.9 g/dl (12.0-15.5); LYMPH # 2.1 10^3/uL (1.5-5.0); LYMPH % 36.1 % (24.0-44.0); MEAN CORPUSCULAR HGB CONC 32.9 g/dl (32.0-36.5); MEAN CORPUSCULAR VOLUME 87.9 fl (80.0-96.0); MONO # 0.4 10^3/uL (0.0-0.8); MONO % 7.3 % (2.0-8.0); NEUTROPHILS # 3.1 10^3/uL (1.5-8.5); NEUTROPHILS % 53.1 % (36.0-66.0); PLATELET COUNT, AUTOMATED 230 10^3/uL (150-450); WHITE BLOOD COUNT 5.9 10^3/uL (4.0-10.0)
[2023-02-02 20:05] LABS: FREE T4 1.04 NG/DL (0.89-1.76)
[2023-02-02 20:06] LABS: FOLATE 6.18 NG/ML (>5.4); THYROID STIMULATING HORMONE 1.359 uIU/ML (0.55-4.78); TOTAL 25(OH) VITAMIN D 32.2 NG/ML (20.0-100.0)
== END ==
LOC: M WUC 14:39
PROVIDERS: ATTEND Family Medicine
DX: R53.83 Other fatigue (principal)

== ENCOUNTER → 2023-10-30 | Outpatient (CLI) | payer BC ==
[~2023-10-30] MED LIST changes: -FLUT50SP17 INH; +FLUTISP INH; +LORA-1041 PO; -LORA-674 PO; -MAXA10TA15 PO; +RIZA10TA66 PO
[2023-10-30 12:46] LABS: BASO % 0.7 % (0.0-1.0); EOS # 0.2 10^3/uL (0.0-0.5); EOS % 3.5 % (0.0-3.0); HEMATOCRIT 43.6 % (36.0-47.0); HEMOGLOBIN 14.5 g/dl (12.0-15.5); LYMPH # 1.7 10^3/uL (1.5-5.0); LYMPH % 40.3 % (24.0-44.0); MEAN CORPUSCULAR HEMOGLOBIN 28.9 pg (27.0-33.0); MEAN CORPUSCULAR HGB CONC 33.3 g/dl (32.0-36.5); MONO # 0.3 10^3/uL (0.0-0.8); MONO % 7.5 % (2.0-8.0); NEUTROPHILS % 47.8 % (36.0-66.0); PLATELET COUNT, AUTOMATED 229 10^3/uL (150-450); RED BLOOD COUNT 5.01 10^6/uL (4.00-5.40); WHITE BLOOD COUNT 4.3 10^3/uL (4.0-10.0)
[2023-10-30 13:13] LABS: IRON (FE) 146 UG/DL (50-170); PERCENT SATURATION 43.2 % (13.2-45.0); TOTAL IRON BINDING CAPACITY 338 UG/DL (250-425)
[2023-10-30 13:19] LABS: ALBUMIN 3.4 G/DL (3.2-5.2); ALKALINE PHOSPHATASE 108 U/L (46-116); ALT/SGPT 25 U/L (7.0-40); AST/SGOT 21 U/L (<34); BILIRUBIN,TOTAL 0.6 MG/DL (0.3-1.2); BLOOD UREA NITROGEN 9 MG/DL (9-23); CALCIUM LEVEL 9.1 MG/DL (8.5-10.1); CARBON DIOXIDE LEVEL 30 MMOL/L (20-31); CHLORIDE LEVEL 105 MMOL/L (98-107); CHOLESTEROL LEVEL 172 MG/DL (<200); CHOLESTEROL RISK RATIO 3.13 (<5); FREE T4 1.06 NG/DL (0.89-1.76); GLOMERULAR FILTRATION RATE > 60.0 (>58); GLUCOSE, FASTING 85 MG/DL (60-100); HDL CHOLESTEROL 54.8 MG/DL (>40); LDL CHOLESTEROL 91.2 MG/DL (<100); NON-HDL-C 117.2 MG/DL; POTASSIUM SERUM 4.4 MMOL/L (3.5-5.1); SODIUM LEVEL 139 MMOL/L (136-145); THYROID STIMULATING HORMONE 2.385 uIU/ML (0.55-4.78); TOTAL PROTEIN 6.2 G/DL (5.7-8.2); TRIGLYCERIDES LEVEL 130 MG/DL (<150); VITAMIN B12 LEVEL 341 PG/ML (211-911)
[2023-10-30 14:09] LABS: HEMOGLOBIN A1c 5.4 % (4.0-6.0)
== END ==
LOC: M WUC 10:46
PROVIDERS: ATTEND Family Medicine
DX: Z13.29 Encounter for screening for other suspected endocrine disorder (principal); Z13.220 Encounter for screening for lipoid disorders; E61.1 Iron deficiency

== ENCOUNTER → 2024-12-19 | Outpatient (CLI) | payer BC ==
[~2024-12-19] MED LIST changes: +GABA-1490 PO; -GABA600T4 PO
[2024-12-19 11:31] LABS: EOS # 0.1 10^3/uL (0.0-0.5); EOS % 3.6 % (0.0-3.0); HEMOGLOBIN 15.3 g/dl (12.0-15.5); LYMPH # 1.9 10^3/uL (1.5-5.0); LYMPH % 48.6 % (24.0-44.0); MEAN CORPUSCULAR HEMOGLOBIN 28.7 pg (27.0-33.0); MEAN CORPUSCULAR HGB CONC 32.6 g/dl (32.0-36.5); MONO # 0.3 10^3/uL (0.0-0.8); MONO % 6.5 % (2.0-8.0); NEUTROPHILS # 1.6 10^3/uL (1.5-8.5); PLATELET COUNT, AUTOMATED 260 10^3/uL (150-450); RED BLOOD COUNT 5.34 10^6/uL (4.00-5.40); WHITE BLOOD COUNT 3.9 10^3/uL (4.0-10.0)
[2024-12-19 11:46] LABS: VITAMIN B12 LEVEL 883 PG/ML (211-911)
[2024-12-19 11:47] LABS: FOLATE 10.5 NG/ML (>5.4); IRON (FE) 116 UG/DL (50-170); THYROID STIMULATING HORMONE 2.191 uIU/ML (0.55-4.78); TOTAL IRON BINDING CAPACITY 352 UG/DL (250-425)
[2024-12-19 11:48] LABS: ALBUMIN 3.7 G/DL (3.2-5.2); ALKALINE PHOSPHATASE 96 U/L (35-104); ALT/SGPT 16 U/L (7.0-40); AST/SGOT 18 U/L (<34); BILIRUBIN,TOTAL 0.5 MG/DL (0.3-1.2); BLOOD UREA NITROGEN 7 MG/DL (9-23); CALCIUM LEVEL 9.8 MG/DL (8.5-10.1); CARBON DIOXIDE LEVEL 29 MMOL/L (20-31); CHLORIDE LEVEL 106 MMOL/L (98-107); CHOLESTEROL LEVEL 282 MG/DL (<200); CHOLESTEROL RISK RATIO 5.09 (<5); CREATININE FOR GFR 0.98 MG/DL (0.55-1.30); FREE T4 1.37 NG/DL (0.89-1.76); GLOMERULAR FILTRATION RATE > 60.0 (>58); GLUCOSE, FASTING 88 MG/DL (60-100); HDL CHOLESTEROL 55.4 MG/DL (>40); LDL CHOLESTEROL 201.6 MG/DL (<100); NON-HDL-C 226.6 MG/DL; SODIUM LEVEL 143 MMOL/L (136-145); TOTAL PROTEIN 6.8 G/DL (5.7-8.2); TRIGLYCERIDES LEVEL 125 MG/DL (<150)
== END ==
LOC: M WUC 10:03
PROVIDERS: ATTEND Nurse Practitioner Adult Health
DX: E78.2 Mixed hyperlipidemia (principal); E61.1 Iron deficiency; Z98.84 Bariatric surgery status

== ENCOUNTER → 2025-09-13 | Outpatient (CLI) | payer BC ==
[2025-09-13 12:39] LABS: CHOLESTEROL LEVEL 234 MG/DL (<200); CHOLESTEROL RISK RATIO 3.91 (<5); IRON (FE) 120 UG/DL (50-170); LDL CHOLESTEROL 152.3 MG/DL (<100); NON-HDL-C 174.3 MG/DL; PERCENT SATURATION 34.9 % (13.2-45.0); TRIGLYCERIDES LEVEL 110 MG/DL (<150)
[2025-09-13 12:40] LABS: ESTRADIOL 51.3 PG/ML; TOTAL 25(OH) VITAMIN D 32.0 NG/ML (20.0-100.0)
[2025-09-13 12:41] LABS: FREE T4 1.21 NG/DL (0.89-1.76); PROGESTERONE < 0.21 NG/ML; VITAMIN B12 LEVEL 1603 PG/ML (211-911)
[2025-09-13 12:43] LABS: BASO # 0.0 10^3/uL (0.0-0.2); BASO % 0.8 % (0.0-1.0); EOS # 0.1 10^3/uL (0.0-0.5); EOS % 3.2 % (0.0-3.0); LYMPH # 1.8 10^3/uL (1.5-5.0); LYMPH % 47.6 % (24.0-44.0); MONO # 0.3 10^3/uL (0.0-0.8); MONO % 7.7 % (2.0-8.0); NEUTROPHILS # 1.5 10^3/uL (1.5-8.5); NEUTROPHILS % 40.7 % (36.0-66.0); PLATELET COUNT, AUTOMATED 250 10^3/uL (150-450)
[2025-09-13 13:28] LABS: ESTIMATED AVERAGE GLUCOSE 97.0 MG/DL (60-110)
== END ==
LOC: M WUC 08:37
PROVIDERS: ATTEND Family Medicine
DX: N95.8 Other specified menopausal and perimenopausal disorders (principal)

== ENCOUNTER → 2025-09-22 | Outpatient (CLI) | payer BC ==
[2025-09-22 17:10] LABS: % LABILE ALKALINE PHOSPHATASE 38.7 %; LABILE ALKPHOS 36.0 U/L; STABLE ALKPHOS 57.0 U/L
== END ==
LOC: M WUC 09:53
PROVIDERS: ATTEND Family Medicine
DX: R74.8 Abnormal levels of other serum enzymes (principal)